=== PATIENT | female | born 2005 | race Caucasian/White ===

== ENCOUNTER 2025-03-06 05:31 | Observation (INO) | payer OTHER, SELFPAY ==
[2025-03-06] VITALS (28 sets, daily range): BP systolic 108–138; BP diastolic 57–98; PULSE 65–95; RESP 14–28; TEMP 36.2–37.1; O2SAT 98–100; BMI 33.6; BMI 33.7
--- NOTE | ~2025-03-06 | CT_ITS ---
[facility] EXAMINATION: CT abdomen pelvis w con COMPARISON: None HISTORY: RLQ pain, n/v/d TECHNIQUE: Axial images were obtained through the abdomen, pelvis post administration of IV contrast. Oral contrast was also administered. Coronal reconstruction images were obtained from the axial views. CT scan performed using dose optimization techniques including the following automated exposure control; adjustment of mA and/or kV; use of iterative reconstruction technique. Automatic exposure control was used to reduce radiation dose. Permanent radiation dose record is archived to PACS. FINDINGS: CT abdomen: LUNG BASES: The lung bases are clear. The visualized portions of the heart and pericardium are unremarkable. LIVER: Unremarkable, liver contours intact, no lesions. SPLEEN: Unremarkable. KIDNEYS: Right Kidney: The right kidney demonstrates a diminished nephrogram with mild hydronephrosis and hydroureter degenerative obstructing distal right ureteral calculus 2 x 2 millimeters. Left Kidney: Unremarkable. No calculi. No hydronephrosis ADRENAL GLANDS: Unremarkable. PANCREAS: Unremarkable. GALLBLADDER/BILIARY: Unremarkable. No biliary dilatation. STOMACH AND ESOPHAGUS: Visualized stomach and esophagus within normal limits. BOWEL/MESENTERY: Appendix normal. Mesentery normal. No colitis or diverticulitis. No dilated small bowel loops. ADENOPATHY/RETROPERITONEUM: No lymphadenopathy. AORTA/VASCULATURE: Normal caliber aorta. FREE FLUID OR FREE AIR: None. CT pelvis: SOLID ORGANS/REPRODUCTIVE: Unremarkable. BLADDER: Within normal limits. OSSEOUS STRUCTURES: No acute osseous abnormality.No suspicious lesions. OVERLYING SOFT TISSUES: Unremarkable. IMPRESSION: Right-sided obstructive uropathy Reviewed, dictated and finalized at location P. TABLE PACKER
--- NOTE | ~2025-03-06 | XR_ITS ---
EXAMINATION: XR retrograde pyelo w/stent RT DATE: 03/06/2025 17:00 INDICATION: Right internal ureteral stent placement TECHNIQUE: Fluoroscopic images from a right internal ureteral stent placement are submitted for review. 10 seconds of fluoroscopy time. FINDINGS: There is a right double-J internal ureteral stent projecting in expected position, with proximal [place] loop at the level of the renal pelvis and distal loop in the pelvis within the bladder lumen. IMPRESSION: 1. Right internal ureteral stent placement. Please refer to real-time procedural findings for details. Reviewed, dictated and finalized at location O. CTOR NEW PRODUCT IMPRESSION: 1. Right internal ureteral stent placement. Please refer to real-time procedu ral findings for details.
--- NOTE | 2025-03-06 07:37 | ED_ITS ---
HPI - Abdominal Pain General Chief Complaint: Abdominal Pain Stated Complaint: abd pain Time Seen by Provider: 03/06/25 07:02 History of Present Illness HPI narrative: For last 2 days, patient has had some abdominal pain, with nausea vomiting, however last night it got worse and at 4 this morning she was woken up with severe pain to her right lower quadrant Related Data Allergies Allergy/AdvReac Type Severity Reaction Status Date / Time No Known Allergies Allergy Verified 03/06/25 05:41 Review of Systems 2 Review of Systems: All systems reviewed & are unremarkable except as noted in HPI and below Exam 2 Narrative: EXAMINATION OF ORGAN SYSTEMS/BODY AREAS: Constitutional: Vital signs per nursing GENERAL: Curled up in pain HEAD: Normal with no signs of head trauma. EYES: EOMI, conjunctiva normal ENT: Hearing grossly intact LUNGS: Nonlabored breathing. HEART: [Regular rate and rhythm] ABD: [Soft], [nontender to palpation] EXT: Normal range of motion SKIN: [No rashes or lesions.] NEURO: [Alert and oriented x 3. No gross focal sensory or strength deficits.] PSYCH: Normal affect Course Vital Signs Vital signs: Vital Signs Temperature 98.2 F 03/06/25 05:39 Pulse Rate 95 03/06/25 05:39 Respiratory Rate 22 H 03/06/25 05:39 Blood Pressure 136/98 H 03/06/25 05:39 Pulse Oximetry 98 03/06/25 05:39 Temperature 98.2 F 03/06/25 05:39 Pulse Rate 74 03/06/25 10:30 Respiratory Rate 20 03/06/25 10:30 Blood Pressure 136/95 H 03/06/25 10:30 Pulse Oximetry 100 03/06/25 10:30 MDM - Abdominal Pain MDM Narrative Medical decision making narrative: ED COURSE AND MEDICAL DECISION MAKINF presenting to the emergency department for acute right lower quadrant pain, symptoms are concerning for likely renal colic versus pyelonephritis or appendicitis. Urinalysis is ordered. [Morphine 4mg, Zofran 4mg] are ordered. CT scan of the abdomen/pelvis is ordered. Labs are remarkable for: possible UTI, so I started ceftriaxone. CT scan of the abdomen/pelvis is reviewed by myself and interpreted by radiology: normal appendix, 2mm distal obstructing stone on R. On reevaluation, the patient still having significant pain despite the second dose of morphine; toradol 15mg given and on re-eval she feels much better and is now resting comfortably. D/w Dr Cleveland who is at bedside to see patient, plans for OR today if patient doesn't pass stone today. Updated pt and family on plan. Lab Data 03/06/25 07:46 03/06/25 09:04 Labs: Lab Results 03/06/25 03/06/25 03/06/25 Range/Units 07:46 07:50 09:04 WBC 8.7 (4.5-10.0) K/mm3 RBC 4.72 (4.2-5.4) M/mm3 Hgb 13.5 (12.0-15.0) g/dL Hct 39.8 (37.0-47.0) % MCV 84.3 (80-100) fl MCH 28.6 (26-34) pg MCHC 33.9 (32-36) g/dl RDW 11.8 (11.5-14.5) % Plt Count 288 (150-375) k/mm3 MPV 9.9 (7.4-10.4) fl Immature Gran % (Auto) 0.6 H (0-0.5) % Neut % (Auto) 75.1 H (45.5-73.1) % Lymph % (Auto) 17.8 L (18.3-44.2) % [place] % (Auto) 4.1 (2.6-8.5) % Eos % (Auto) 1.6 (0-4.4) % Baso % (Auto) 0.8 (0.2-1.2) % Lymph # (Auto) 1.55 (0.9-3.2) K/mm3 [place] # (Auto) 0.4 (0.1-0.6) K/mm3 Eos # (Auto) 0.1 (0-0.3) K/mm3 Baso # (Auto) 0.1 (0.0-0.1) K/mm3 Abs Immat Gran (auto) 0.05 H (0.00-0.031) K/mm3 Absolute Neuts (auto) 6.5 (1.3-6.7) K/mm3 Absolute Nucleated RBC 0.000 (0.0-0.012) K/mm3 Nucleated RBC % 0.0 (0.0-0.2) % Sodium 139 (134-143) mmol/L Potassium 4.7 (3.4-5.0) mmol/L Chloride 110 H (98-107) mmol/L Carbon Dioxide 16 L (22-30) mmol/L Anion Gap 13 H (4-12) mmol/L BUN 10 (8-21) mg/dL Creatinine 1.04 H (0.7-1.0) mg/dL Estim Creat Clear Calc 92 ml/min Estimated GFR > 60 (59 - ) Glucose 119 H (65-110) mg/dL Calcium 9.9 (8.9-10.7) mg/dL Total Bilirubin 0.4 (0.2-1.3) mg/dL AST 30 (14-36) U/L ALT 35 (6-35) U/L Alkaline Phosphatase 73 (45-116) U/L Total Protein 7.4 (6.3-8.6) g/dL Albumin 4.7 (3.7-5.6) g/dL Lipase 73 (23-300) U/L Urine Color (Yellow) Urine Appearance (Clear) Urine pH (5.0-9.0) Ur Specific [place] (1.001-1.035) Urine Protein (Negative) mg/dL Urine Glucose (UA) (Negative) mg/dL Urine Ketones (Negative) mg/dL Ur Blood (Man) (Negative) Urine Nitrate (Negative) Urine Bilirubin (Negative) Urine Urobilinogen (<2.0) mg/dL Add Ur Microanalysis Leukocyte Esterase Rfl (Negative) ANTHONY/UL Urine RBC (0-2) /hpf Urine WBC (0-3) /hpf Ur Squamous Epith Cells (Few) /hpf Urine Bacteria /hpf Urine Casts POC Urine HCG, Qual Negative (Negative) 03/06/25 Range/Units 09:20 WBC (4.5-10.0) K/mm3 RBC (4.2-5.4) M/mm3 Hgb (12.0-15.0) g/dL Hct (37.0-47.0) % MCV (80-100) fl MCH (26-34) pg MCHC (32-36) g/dl RDW (11.5-14.5) % Plt Count (150-375) k/mm3 MPV (7.4-10.4) fl Immature Gran % (Auto) (0-0.5) % Neut % (Auto) (45.5-73.1) % Lymph % (Auto) (18.3-44.2) % [place] % (Auto) (2.6-8.5) % Eos % (Auto) (0-4.4) % Baso % (Auto) (0.2-1.2) % Lymph # (Auto) (0.9-3.2) K/mm3 [place] # (Auto) (0.1-0.6) K/mm3 Eos # (Auto) (0-0.3) K/mm3 Baso # (Auto) (0.0-0.1) K/mm3 Abs Immat Gran (auto) (0.00-0.031) K/mm3 Absolute Neuts (auto) (1.3-6.7) K/mm3 Absolute Nucleated RBC (0.0-0.012) K/mm3 Nucleated RBC % (0.0-0.2) % Sodium (134-143) mmol/L Potassium (3.4-5.0) mmol/L Chloride (98-107) mmol/L Carbon Dioxide (22-30) mmol/L Anion Gap (4-12) mmol/L BUN (8-21) mg/dL Creatinine (0.7-1.0) mg/dL Estim Creat Clear Calc ml/min Estimated GFR (59 - ) Glucose (65-110) mg/dL Calcium (8.9-10.7) mg/dL Total Bilirubin (0.2-1.3) mg/dL AST (14-36) U/L ALT (6-35) U/L Alkaline Phosphatase (45-116) U/L Total Protein (6.3-8.6) g/dL Albumin (3.7-5.6) g/dL Lipase (23-300) U/L Urine Color Yellow (Yellow) Urine Appearance Cloudy H (Clear) Urine pH 6.0 (5.0-9.0) Ur Specific [place] 1.027 (1.001-1.035) Urine Protein 1+ H (Negative) mg/dL Urine Glucose (UA) Negative (Negative) mg/dL Urine Ketones Trace H (Negative) mg/dL Ur Blood (Man) Non-hemolyzed trace H (Negative) Urine Nitrate Negative (Negative) Urine Bilirubin Negative (Negative) Urine Urobilinogen 1.0 (<2.0) mg/dL Add Ur Microanalysis Reviewed Leukocyte Esterase Rfl 2+ H (Negative) ANTHONY/UL Urine RBC 6-10 H (0-2) /hpf Urine WBC >100 H (0-3) /hpf Ur Squamous Epith Cells Few (Few) /hpf Urine Bacteria None seen /hpf Urine Casts 6-10 POC Urine HCG, Qual (Negative) Imaging Data Radiologist's impression: ITS Impressions Abdomen/Pelvis CT 03/06/25 09:46 IMPRESSION: Right-sided obstructive uropathy Discharge Plan Discharge Clinical Impression: Right ureteral stone, Suspected UTI Patient Disposition: Still a Patient Condition: Stable
[2025-03-06] MEDS: ONDANSETRON INJ 4 MG/2 ML VIAL IV PUSH (07:41)
[2025-03-06] MEDS: MORPHINE SULFATE (*CRX) 4 MG/ML INJ IV PUSH ×2 (07:42→09:49)
[2025-03-06] MEDS: LACTATED RINGERS 1,000 ML 999 ML IV CONT (07:43)
[2025-03-06 07:52] LABS: BEDSIDEPREGUCG Negative (Negative)
[2025-03-06 08:00] LABS: Hematocrit 39.8 % (37.0-47.0); Hemoglobin 13.5 g/dL (12.0-15.0); Immature Granulocyte Percent A 0.6 % (0-0.5); Lymphocytes Absolute Auto 1.55 K/mm3 (0.9-3.2); Mean Corpuscular HGB Conc 33.9 g/dl (32-36); Mean Corpuscular Hemoglobin 28.6 pg (26-34); Mean Corpuscular Volume 84.3 fl (80-100); Nucleated Red Blood Cells Absolute Auto 0.000 K/mm3 (0.0-0.012); Nucleated Red Blood Cells Perc 0.0 % (0.0-0.2); Platelet Count Result 288 k/mm3 (150-375); Red Blood Count 4.72 M/mm3 (4.2-5.4); White Blood Count 8.7 K/mm3 (4.5-10.0)
--- OUTSIDE RECORDS SUMMARY | 2025-03-06 08:09 | XMS_ITS | Encounter Summary ---
[facility] Organization [facility] Address [address] [place] [address] Care Team Providers Care Edge Cutting Machine Operator Name Role Phone Torsten King MD Primary Care Provider [phone] Luke Latif MD Primary Care Provider Unav ailable Patient, None Per Primary Care Provider Premaa Trung Field MD Primary Care Provider Claudia Castro [facility] Primary Care Provider Claudia Castro [facility] Primary Care Provider Claudia Castro [facility] Primary Care Provider Encounter Details Date Type Department Care Team (Late st Contact Info) Description 2005 Historical Office Visit [facility] Pediatrics [facility] [address] [facility] [address] [place] [address] Uche Hobbs MD [address] [facility] [address] [place] [address] Social History Tobacco Use Types Packs/Day Years Used Date Smoking Tobacco: Never Assessed Comments Unknown Sex and Gender Information Value Date Recorded Sex Assigned at Not on file Legal Sex Female 4:54 PM FLATCAR WHACKER Gender Identity Female 03/21/2023 4:10 PM FLATCAR WHACKER Sexual Orientation Not on file documented as of this encounter Last Filed Vital Signs Vital Sign Reading Time Taken Comments Blood Pressure - - Pulse 138 2005 11:29 AM FLATCAR WHACKER Temperature 36.4 C (97.6 F) 2005 11:29 AM FLATCAR WHACKER Respiratory Rate 24 2005 11:29 AM FLATCAR WHACKER Oxygen Saturation - - Inhaled Oxygen Concentration - - Weight 3.742 kg (8 lb 4 oz) 2005 11:29 AM FLATCAR WHACKER Height 52.3 cm (1' 8.6) 2005 11:29 AM FLATCAR WHACKER Hasaix-gca-Opufux Percentile 36.26% 2005 1 1:29 AM FLATCAR WHACKER Growth Chart: WHO (Girls, 0- 2 years) Head Circumference 36.2 cm 2005 11:29 AM CS T Head Circumference Percentile 75.95% 2005 11:29 AM FLATCAR WHACKER Growth Chart: WHO (Girls, 0- 2 years) Body Mass Index 13.67 2005 11:29 AM FLATCAR WHACKER Body Mass Index Percentile 39.33% 2005 11: 29 AM FLATCAR WHACKER Growth Chart: WHO (Girls, 0- 2 years) documented in this encounter Plan of Treatment Not on file documented as of this encounter Visit Diagnoses Not on filedocumented in this encounter Care Teams Edge Cutting Machine Operator Relationship Specialty Start Date End Date Torsten King MD PCP - General Family Medicine 03/25/14 11/23/15 Luke Latif MD PCP - General Family Medicine 11/24/15 05/06/17 Patient, None Per PCP - General 08/05/17 08/15/17 Trung Carlson MD PCP - General Pediatrics 08/16/17 03/06/18 Claudia Castro FNP PCP - General Family Medicine 03/07/18 11/14/18 Claudia Castro FNP PCP - General Family Medicine 11/21/18 02/14/19 Claudia Castro, MALENA PCP - General Family Medicine 05/23/19 documented as of this encounter
--- OUTSIDE RECORDS SUMMARY | 2025-03-06 08:09 | XMS_ITS | Encounter Summary ---
Author Organization [facility] Address [address] [place] [address] Care Team Providers Care Membership Assistant Name Role Phone Torsten King MD Primary Care Provider [phone] Luke Latif MD Primary Care Provider Unav ailable Patient, None Per Primary Care Provider Premaa Trung Field MD Primary Care Provider Claudia Castro [facility] Primary Care Provider [phone] Claudia Castro [facility] Primary Care Provider [phone] Claudia Castro [facility] Primary Care Provider [phone] Encounter Details Date Type Department Care Team (Late st Contact Info) Description 01/27/2008 Historical Office Visit [facility] Family Medicine [address] [address] Provider, Not In System Social History Tobacco Use Types Packs/Day Years Used Date Smoking Tobacco: Never Assessed Comments Unknown Sex and Gender Information Value Date Recorded Sex Assigned at Not on file Legal Sex Female 4:54 PM CULINARY INTERNSHIP Gender Identity Female 03/21/2023 4:10 PM CULINARY INTERNSHIP Sexual Orientation Not on file documented as of this encounter Last Filed Vital Signs Vital Sign Reading Time Taken Comments Blood Pressure - - Pulse 92 01/27/2008 3:42 PM CDT Temperature 37 C (98.6 F) 01/27/2008 3:42 PM CDT Respiratory Rate - - Oxygen Saturation - - Inhaled Oxygen Concentration - - Weight 14.1 kg (31 lb) 01/27/2008 3:42 PM CDT Height - - Body Mass Index - - documented in this encounter Plan of Treatment Not on file documented as of this encounter Visit Diagnoses Not on filedocumented in this encounter Care Teams Membership Assistant Relationship Specialty Start Date End Date Torsten [...] - General Family Medicine 11/21/18 02/14/19 Claudia Castro FNP PCP - General Family Medicine 05/23/19 documented as of this encounter
--- OUTSIDE RECORDS SUMMARY | 2025-03-06 08:09 | XMS_ITS | Encounter Summary ---
Author Organization [facility] Address [address] [place] [address] Care Team Providers Care Meter Shop Supervisor Name Role Phone Torsten King MD Primary Care Provider [phone] Luke Latif MD Primary Care Provider Unav ailable Patient, None Per Primary Care Provider Premaa Trung Field MD Primary Care Provider Claudia Castro [facility] Primary Care Provider [phone] [facility] Primary Care Provider [phone] [facility] Primary Care Provider [phone] Encounter Details Date Type Department Care Team (Late st Contact Info) Description 2005 Historical Office Visit [facility] Pediatrics [facility] [place] [address] [facility] [address] [place] [address] Uche Hobbs MD [address] [facility] [address] [place] [address] Social History Tobacco Use Types Packs/Day Years Used Date Smoking Tobacco: Never Assessed Comments Unknown Sex and Gender Information Value Date Recorded Sex Assigned at Not on file Legal Sex Female 4:54 PM LASER OPERATOR Gender Identity Female 03/21/2023 4:10 PM LASER OPERATOR Sexual Orientation Not on file documented as of this encounter Last Filed Vital Signs Vital Sign Reading Time Taken Comments Blood Pressure - - Pulse 140 2005 2:41 PM LASER OPERATOR Temperature 36.3 C (97.3 F) 2005 2:41 PM LASER OPERATOR Respiratory Rate 38 2005 2:41 PM LASER OPERATOR Oxygen Saturation - - Inhaled Oxygen Concentration - - Weight 3.402 kg (7 lb 8 oz) 2005 2:[address] Height 48.3 cm (1' 7) 2005 2:41 PM LASER OPERATOR Ukdzqi-qoj-Aojdmb Percentile 89.59% 2005 2 :41 PM LASER OPERATOR Growth Chart: WHO (Girls, 0- 2 years) Body Mass Index 14.61 2005 2:41 PM LASER OPERATOR Body Mass Index Percentile 81.13% 2005 2:4 1 PM LASER OPERATOR Growth Chart: WHO (Girls, 0- 2 years) documented in this encounter Plan of Treatment Not on file documented as of this encounter Visit Diagnoses Not on filedocumented in this encounter Care Teams Meter Shop Supervisor Relationship Specialty Start Date End Date Torsten [...]
--- OUTSIDE RECORDS SUMMARY | 2025-03-06 08:09 | XMS_ITS | Encounter Summary ---
Author Organization [facility] Address [address] [place] [address] Care Team Providers Care Principal Associate Name Role Phone Torsten King MD Primary Care Provider [phone] Luke Latif MD Primary Care Provider Unav ailable Patient, None Per Primary Care Provider Unavaila Trung Field MD Primary Care Provider Claudia Castro [facility] Primary Care Provider Claudia Castro [facility] Primary Care Provider Claudia Castro [facility] Primary Care Provider Encounter Details Date Type Department Care Team (Late st Contact Info) Description 2005 Historical Office Visit [address] [place] [address] Lena Crawford NP Social History Tobacco Use Types Packs/Day Years Used Date Smoking Tobacco: Never Assessed Comments Unknown Sex and Gender Information Value Date Recorded Sex Assigned at Not on file Legal Sex Female 4:54 PM INFORMATION SECURITY Gender Identity Female 03/21/2023 4:10 PM INFORMATION SECURITY Sexual Orientation Not on file documented as of this encounter Last Filed Vital Signs Vital Sign Reading Time Taken Comments Blood Pressure - - Pulse 144 2005 11:02 AM CDT Temperature 37 C (98.6 F) 2005 11:02 AM CDT Respiratory Rate 20 2005 11:02 AM CDT Oxygen Saturation - - Inhaled Oxygen Concentration - - Weight 7.314 kg (16 lb 2 oz) 2005 11:02 AM CDT Height 63.5 cm (2' 1) 2005 11:02 AM CDT Sqsmzp-qxn-Qkvckv Percentile 81.40% 2005 1 1:02 AM CDT Growth Chart: WHO (Girls, 0- 2 years) Body Mass Index 18.14 2005 11:02 AM CDT Body Mass Index Percentile 79.48% 2005 11: 02 AM CDT Growth Chart: WHO (Girls, 0- 2 years) documented in this encounter Plan of Treatment Not on file documented as of this encounter Visit Diagnoses Not on filedocumented in this encounter Care Teams Principal Associate Relationship Specialty Start Date End Date Torsten [...]
--- OUTSIDE RECORDS SUMMARY | 2025-03-06 08:09 | XMS_ITS | Encounter Summary ---
Author Organization [facility] Address [address] [place] [address] Care Team Providers Care Funeral Home Attendant Name Role Phone Torsten King MD Primary Care Provider [phone] Luke Latif MD Primary Care Provider Unav ailable Patient, None Per Primary Care Provider Premaa Trung Field MD Primary Care Provider Claudia Castro [facility] Primary Care Provider [phone] [facility] Primary Care Provider Claudia Castro [facility] Primary Care Provider Encounter Details Date Type Department Care Team (Late st Contact Info) Description 06/03/2006 Historical Office Visit [facility] Family Medicine [address] [place] [id number] Pankaj Baez, DIRECTOR OF QUALITY IMPROVEMENT Social History Tobacco Use Types Packs/Day Years Used Date Smoking Tobacco: Never Assessed Comments Unknown Sex and Gender Information Value Date Recorded Sex Assigned at Not on file Legal Sex Female 4:54 PM LAMINATION SPINNER Gender Identity Female 03/21/2023 4:10 PM LAMINATION SPINNER Sexual Orientation Not on file documented as of this encounter Last Filed Vital Signs Vital Sign Reading Time Taken Comments Blood Pressure - - Pulse - - Temperature 37.4 C (99.3 F) 06/03/2006 11:22 AM LAMINATION SPINNER Respiratory Rate - - Oxygen Saturation - - Inhaled Oxygen Concentration - - Weight 9.752 kg (21 lb 8 oz) 06/03/2006 11:22 AM LAMINATION SPINNER Height - - Body Mass Index - - documented in this encounter Plan of Treatment Not on file documented as of this encounter Visit Diagnoses Not on filedocumented in this encounter Care Teams Funeral Home Attendant Relationship Specialty Start Date End Date Torsten [...]
--- OUTSIDE RECORDS SUMMARY | 2025-03-06 08:09 | XMS_ITS | Encounter Summary ---
Author Organization [facility] Address [address] [place] [address] Care Team Providers Care Director Telecommunications Name Role Phone Torsten King MD Primary Care Provider [phone] Luke Latif MD Primary Care Provider Unav ailable Patient, None Per Primary Care Provider Premaa Trung Field MD Primary Care Provider Claudia Castro [facility] Primary Care Provider Claudia Castro [facility] Primary Care Provider Claudia Castro [facility] Primary Care Provider [phone] Encounter Details Date Type Department Care Team (Late st Contact Info) Description 2005 Historical Office Visit [facility]s [facility] [address] [facility] [address] [place] [address] Uche Hobbs MD [address] [facility] [address] [place] [address] Social History Tobacco Use Types Packs/Day Years Used Date Smoking Tobacco: Never Assessed Comments Unknown Sex and Gender Information Value Date Recorded Sex Assigned at Not on file Legal Sex Female 4:54 PM BIODIESEL DIVISION MANAGER Gender Identity Female 03/21/2023 4:10 PM BIODIESEL DIVISION MANAGER Sexual Orientation Not on file documented as of this encounter Last Filed Vital Signs Vital Sign Reading Time Taken Comments Blood Pressure - - Pulse 128 2005 1:34 PM BIODIESEL DIVISION MANAGER Temperature 36 C (96.8 F) 2005 1:34 PM BIODIESEL DIVISION MANAGER Respiratory Rate 36 2005 1:34 PM BIODIESEL DIVISION MANAGER Oxygen Saturation - - Inhaled Oxygen Concentration - - Weight 4.224 kg (9 lb 5 oz) 2005 1:[address] Height 53.3 cm (1' 9) 2005 1:34 PM BIODIESEL DIVISION MANAGER Mbxgme-cwq-Nybxma Percentile 61.89% 2005 1 :34 PM BIODIESEL DIVISION MANAGER Growth Chart: WHO (Girls, 0- 2 years) Body Mass Index 14.85 2005 1:34 PM BIODIESEL DIVISION MANAGER Body Mass Index Percentile 51.78% 2005 1:3 4 PM BIODIESEL DIVISION MANAGER Growth Chart: WHO (Girls, 0- 2 years) documented in this encounter Plan of Treatment Not on file documented as of this encounter Visit Diagnoses Not on filedocumented in this encounter Care Teams Director Telecommunications Relationship Specialty Start Date End Date Torsten [...]
--- OUTSIDE RECORDS SUMMARY | 2025-03-06 08:09 | XMS_ITS | Encounter Summary ---
Author Organization [facility] Address [address] [place] [address] Care Team Providers Care Housecleaner Floor Name Role Phone Torsten King MD Primary Care Provider [phone] Luke Latif MD Primary Care Provider Unav ailable Patient, None Per Primary Care Provider Unavaila Trung Field MD Primary Care Provider Claudia Castro [facility] Primary Care Provider [phone] Claudia Castro [facility] Primary Care Provider Claudia Castro [facility] Primary Care Provider Encounter Details Date Type Department Care Team (Late st Contact Info) Description 02/24/2006 Historical Office Visit [facility] Family Medicine [address] [address] Provider, Not In System Social History Tobacco Use Types Packs/Day Years Used Date Smoking Tobacco: Never Assessed Comments Unknown Sex and Gender Information Value Date Recorded Sex Assigned at Not on file Legal Sex Female 4:54 PM COUTURE DRESSMAKER Gender Identity Female 03/21/2023 4:10 PM COUTURE DRESSMAKER Sexual Orientation Not on file documented as of this encounter Last Filed Vital Signs Vital Sign Reading Time Taken Comments Blood Pressure - - Pulse 120 02/24/2006 6:00 PM CDT Temperature 35.8 C (96.4 F) 02/24/2006 6:00 PM CDT Respiratory Rate - - Oxygen Saturation - - Inhaled Oxygen Concentration - - Weight 3.912 kg (8 lb 10 oz) 02/24/2006 6:00 PM CDT Height - - Body Mass Index - - documented in this encounter Plan of Treatment Not on file documented as of this encounter Visit Diagnoses Not on filedocumented in this encounter Care Teams Housecleaner Floor Relationship Specialty Start Date End Date Torsten [...]
--- OUTSIDE RECORDS SUMMARY | 2025-03-06 08:09 | XMS_ITS | Encounter Summary ---
Author Organization [facility] Address [address] [place] [address] Care Team Providers Care Asp Net Mvc Developer Name Role Phone Torsten King MD Primary Care Provider [phone] Luke Latif MD Primary Care Provider Unav ailable Patient, None Per Primary Care Provider Unavaila Trung Field MD Primary Care Provider [phone] Claudia Castro [facility] Primary Care Provider Claudia Csatro [facility] Primary Care Provider Claudia Castro [facility] Primary Care Provider Encounter Details Date Type Department Care Team (Late st Contact Info) Description 2005 Historical Office Visit [address] [place] [address] Lena Crawford NP Social History Tobacco Use Types Packs/Day Years Used Date Smoking Tobacco: Never Assessed Comments Unknown Sex and Gender Information Value Date Recorded Sex Assigned at Not on file Legal Sex Female 4:54 PM LOCKSTITCH FRONT MAKER Gender Identity Female 03/21/2023 4:10 PM LOCKSTITCH FRONT MAKER Sexual Orientation Not on file documented as of this encounter Last Filed Vital Signs Vital Sign Reading Time Taken Comments Blood Pressure - - Pulse 156 2005 3:53 PM LOCKSTITCH FRONT MAKER Temperature 35.7 C (96.3 F) 2005 3:53 PM LOCKSTITCH FRONT MAKER Respiratory Rate 44 2005 3:53 PM LOCKSTITCH FRONT MAKER Oxygen Saturation - - Inhaled Oxygen Concentration - - Weight 4.139 kg (9 lb 2 oz) 2005 3:[address] Height 52.7 cm (1' 8.75) 2005 3:53 PM LOCKSTITCH FRONT MAKER Dklsnf-rps-Mpnpci Percentile 68.56% 2005 3 :53 PM LOCKSTITCH FRONT MAKER Growth Chart: WHO (Girls, 0- 2 years) Head Circumference 37.5 cm 2005 3:53 PM LOCKSTITCH FRONT MAKER Head Circumference Percentile 83.98% 2005 3:53 PM LOCKSTITCH FRONT MAKER Growth Chart: WHO (Girls, 0- 2 years) Body Mass Index 14.9 2005 3:53 PM LOCKSTITCH FRONT MAKER Body Mass Index Percentile 62.14% 2005 3:5 3 PM LOCKSTITCH FRONT MAKER Growth Chart: WHO (Girls, 0- 2 years) documented in this encounter Plan of Treatment Not on file documented as of this encounter Visit Diagnoses Not on filedocumented in this encounter Care Teams Asp Net Mvc Developer Relationship Specialty Start Date End Date Torsten [...]
--- OUTSIDE RECORDS SUMMARY | 2025-03-06 08:09 | XMS_ITS | Encounter Summary ---
Author Organization [facility] Address [address] [place] [address] Care Team Providers Care Cleaning Custodian Name Role Phone Torsten King MD Primary Care Provider [phone] Luke Latif MD Primary Care Provider Unav ailable Patient, None Per Primary Care Provider Premaa Trung Field MD Primary Care Provider [phone] Claudia Castro [facility] Primary Care Provider [phone] Claudia Castro [facility] Primary Care Provider [phone] Claudia Castro [facility] Primary Care Provider [phone] Encounter Details Date Type Department Care Team (Late st Contact Info) Description 07/29/2007 Historical Office Visit [facility] [address] [place] [phone] Luis Landaverde MD Social History Tobacco Use Types Packs/Day Years Used Date Smoking Tobacco: Never Assessed Comments Unknown Sex and Gender Information Value Date Recorded Sex Assigned at Not on file Legal Sex Female 4:54 PM FIRST RESPONDER Gender Identity Female 03/21/2023 4:10 PM FIRST RESPONDER Sexual Orientation Not on file documented as of this encounter Last Filed Vital Signs Vital Sign Reading Time Taken Comments Blood Pressure - - Pulse 116 07/29/2007 11:05 AM CDT Temperature 35.6 C (96.1 F) 07/29/2007 11:05 AM CDT Respiratory Rate - - Oxygen Saturation - - Inhaled Oxygen Concentration - - Weight 13.2 kg (29 lb) 07/29/2007 11:05 AM CDT Height 87.6 cm (2' 10.5) 07/29/2007 11:05 AM CD T Ggdbll-lmp-Renhsy Percentile 75.61% 07/29/2007 1 1:05 AM CDT Growth Chart: [facility] (Girls, 2- 20 Years) Body Mass Index 17.13 07/29/2007 11:05 AM CDT Body Mass Index Percentile 71.07% 07/29/2007 11: 05 AM CDT Growth Chart: CDC (Girls, 2- 20 Years) documented in this encounter Plan of Treatment Not on file documented as of this encounter Visit Diagnoses Not on filedocumented in this encounter Care Teams Cleaning Custodian Relationship Specialty Start Date End Date Torsten [...]
--- OUTSIDE RECORDS SUMMARY | 2025-03-06 08:09 | XMS_ITS | Clinical Summary ---
Author Organization [facility] Address [address] [place] [address] Care Team Providers Care Recruiting Specialist Name Role Phone GloriaClaudia Yuliya [facility] Primary Care Provider Source Comments This disclosure is being made pursuant to the [employer] program and maynot contain all information available regarding this patient.[facility] Allergies No known active allergies Medications loratadine (CLARITIN) 10 MG tablet Take 10 mg by mouth daily as needed. Active acetaminophen (TYLENOL) 160 MG/5ML suspension Take by mouth every 6 (six) hours as needed for Fever. Active norgestrel-ethinyl estradiol 0.3-30 MG-MCG per tabletIndications: Oral contraceptive pill surveillance Take 1 (one) tablet by mouth daily. 84 tablet 3 3 Active ampicillin (PRINCIPEN) 500 MG capsule Take 500 mg by mouth 2 (two) times daily. 3 Active clindamycin (CLINDAGEL) 1 % gel Apply topically 2 (two) times daily. 3 Active ibuprofen 400 MG tablet Take 400 mg by mouth every 6 (six) hours as needed. 4 Active Active Problems Problem Noted Date Diagnosed Date Oral contraceptive use 08/27/2022 Syncope 05/12/2022 History of dizziness 05/12/2022 Dizziness 02/27/2022 BMI (body mass index), pedia tric, 85% to less than 95% for age 0408/24/2021 Tonsil stone 11/13/2020 Fatigue 08/22/2020 Oral contraception initiation 02/12/2020 Acne vulgaris 07/25/2019 Encounter for well child check without abnormal findings 07/24/2019 Allergic rhinitis 10/12/2017 Resolved Problems Problem Noted Date Diagnosed Date Resolved Date Tonsillitis 11/13/2020 02/27/2022 Acute non-recurrent pansinusitis 08/22/2020 02/27/2022 Acute pharyngitis 08/22/2020 02/27/2022 Productive cough 08/22/2020 02/27/2022 Screening for HPV (human papillomavirus) 07/29/2020 02/27/2022 Other acute recurrent sinusitis 06/03/2020 07/29/2020 Nasal sinus congestion 06/03/202007/29 Acute suppurative otitis med ia of left ear without spontaneous rupture of tympanic membrane 08/05/2017 07/25/2019 Closed Colles' fracture d istal right radius fracture 2014 04/09/2014 020 Dog bite 11/28/2011 07/25/2019 Overview (11/24/2015): Overview: 2011 right facial laceration ZEENAT BURROUGHS MD Immunizations Immunization Administration Dates Next Due COVID-19 (PFIZER-purple cap) MRNA ages 12+ 04/13/2021,03/23/2021 DTaP (Infanrix) DTaP 10/15/2006,01/09/20 06,2005,08/13 DTaP / IPV 12/11/2010 Hepatitis B-Haemophilus infl uenzae type b (Comvax) HepB-Hib 06/22/2006,2005,2005 Human Papillomavirus (G[place]as il 9) 9vHPV 07/29/2020,11/05/2016 Influenza (FLULAVAL) IIV4, p refilled syringe 03/22/2023,02/06/2020 Influenza Split 03/23/2006 LIVE Zttkhqr-Tvbxl-Pyoaghb ( M-M-R II) MMR 12/11/2010,10/15/2006 LIVE Rotavirus (RotaTeq) RV5 2005 LIVE Varicella (Varivax) ZEFERINO 12/11/2010,02/12/20 09 Meningococcal Conjugate (Men actra) MCV4 MenACWY-D 11/05/2016 Meningococcal Conjugate (Men veo) MCV4 MenACWY-CRM 09/25/2022 PPD Test 03/22/2023 Pneumococcal Polysaccharide- 23 (Pneumovax 23) PPSV23 06/22/2006,01/08/2006,2005,08/13 Polio (Ipol) IPV 01/08/2006,2005, 6 Rotavirus (RotaShield) RV4 2005 Tdap 11/05/2016 Family History Medical History Relation Name Comments High cholesterol Maternal Grandmother Hypertension Maternal Grandmother Uterine cancer Maternal Grandmother No Known Problems Mother High cholesterol Paternal Grandmother Hypertension Paternal Grandmother SIDS Sister Relation Name Status Comments Father Alive Maternal Grandmother Mother Alive Paternal Grandmother Sister Social History Tobacco Use Types Packs/Day Years Used Date Smoking Tobacco: Never Smokeless Tobacco: Never Tobacco Cessation:Counseling Given: Not Answered Alcohol Use Standard Drinks/Week Comments No 0 (1 standard drink = 0.6 oz pur e alcohol) PHQ-2 Answer Date Recorded PHQ-2 Total Score Teen 0 3 Comments No Sex and Gender Information Value Date Recorded Sex Assigned at Not on file Legal Sex Female 4:54 PM BINGO MANAGER Gender Identity Female 03/21/2023 4:10 PM BINGO MANAGER Sexual Orientation Not on file Last Filed Vital Signs Vital Sign Reading Time Taken Comments Blood Pressure 117/79 06/04/2022 3:15 PM BINGO MANAGER Pulse 67 06/04/2022 3:15 PM BINGO MANAGER Temperature 36.7 C (98 F) 06/04/2022 3:15 PM BINGO MANAGER Respiratory Rate 18 06/04/2022 3:15 PM BINGO MANAGER Oxygen Saturation 99% 06/04/2022 3:15 PM BINGO MANAGER Inhaled Oxygen Concentration - - Weight 78 kg (172 lb) 06/04/2022 3:15 PM BINGO MANAGER Height 170.2 cm (5' 7) 06/04/2022 3:15 PM BINGO MANAGER Head Circumference 47 cm 10/15/2006 4:24 PM CDT Head Circumference Percentile 79.68% 10/15/2006 4:24 PM CDT Growth Chart: WHO (Girls, 0- 2 years) Body Mass Index 26.94 06/04/2022 3:15 PM BINGO MANAGER Body Mass Index Percentile 90.65% 06/04/2022 3:1 5 PM BINGO MANAGER Growth Chart: [facility] (Girls, 2- 20 Years) Plan of Treatment Health Maintenance Due Date Last Done Comments Lab-Hepatitis C Screening 2005 Chlamydia Screening 2021 Meningococcal B Vaccine (1 of 2 - Standard) 2021 Annual Wellness Visit 2023 COVID-19 Vaccine (3 - season) 2025 04/13/2021, 03/23/2021 Influenza Vaccine (#1) 2025 , 02/06/2020, 03/23/2006 Tetanus/Pertussis Vaccine Teen/Adult (7 - Td or Tdap) 11/05/2026 11/05/2016, 12/11/2010, 10/15/2006, Additional history exists Zoster (Shingles) Vaccine 50+ (1 of 2) 2055 RSV Adult (1 - 1-dose 75+ series) 2080 HIB Vaccine Completed 06/22/2006, 10/31, 2005 Hepatitis B Vaccine Completed 06/22/2006, 2005, 2005 Pneumococcal Vaccines 0-49 yo Aged Out 06/22/2006, 01/08/2006, 2005, Additional history exists No longer eligible based on patient's age to complete this topic IPV Vaccine Completed 12/11/2010, 12/2005, 2005, Additional history exists HPV Vaccine (9-26yo & Shared Decision 27-45yo) Completed 07/29/2020, 11/05/2016 Meningococcal Conjugate Vaccine Completed 09/25/2022, 11/05/2016 RSV < 20 Months Aged Out No longer el igible based on patient's age to complete this topic Goals Goal Patient Goal Type Associated Problems Recent Progress Patient-Stated? Author DIET - EAT THREE BALANCED MEALS DAILY CONSISTING OF FOODS FROM ALL FOOD GROUPS Self-Managem ent No Trung Carlson MD Note: Assessment of Goals: Patient and Caregiver understands and recognizes importance to complete goal. Barriers or concerns to completing goal: none To assist in achieving goal, patient will: Try and maintain a healthy balanced diet Medical Devices Implanted Type Area Sensor Specialist Device Identifier Shelf Expiration Date Model / Serial / Lot 4 K-Wire Implanted:Qty: 1 on 04/09/2014 by Bob Ly MD at [facility] Right: Wrist MICRO AIRE [id number] / / [place] [address] [place] [address] [facility] Care Teams Recruiting Specialist Relationship Specialty Start Date End Date Claudia Castro FNP PCP - General Family Medicine 05/23/19
--- OUTSIDE RECORDS SUMMARY | 2025-03-06 08:09 | XMS_ITS | Encounter Summary ---
Author Organization [facility] Address [address] [place] [address] Care Team Providers Care Cellar Pumper Name Role Phone Torsten King MD Primary Care Provider [phone] Luke Latif MD Primary Care Provider Unav ailable Patient, None Per Primary Care Provider Premaa Trung Field MD Primary Care Provider Claudia Castro [facility] Primary Care Provider [phone] Claudia Castro [facility] Primary Care Provider [phone] Claudia Castro [facility] Primary Care Provider [phone] Encounter Details Date Type Department Care Team (Late st Contact Info) Description 03/23/[address] [facility] Family Medicine [address] [place] [address] Luis Landaverde MD Social History Tobacco Use Types Packs/Day Years Used Date Smoking Tobacco: Never Assessed Comments Unknown Sex and Gender Information Value Date Recorded Sex Assigned at Not on file Legal Sex Female 4:54 PM MILL TENDER SECOND OPERATOR Gender Identity Female 03/21/2023 4:10 PM MILL TENDER SECOND OPERATOR Sexual Orientation Not on file documented as of this encounter Last Filed Vital Signs Vital Sign Reading Time Taken Comments Blood Pressure - - Pulse 102 03/23/2006 3:30 PM MILL TENDER SECOND OPERATOR Temperature 37.1 C (98.7 F) 03/23/2006 3:30 PM MILL TENDER SECOND OPERATOR Respiratory Rate 20 03/23/2006 3:30 PM MILL TENDER SECOND OPERATOR Oxygen Saturation - - Inhaled Oxygen Concentration - - Weight 9.129 kg (20 lb 2 oz) 03/23/2006 3:30 PM MILL TENDER SECOND OPERATOR Height 75.6 cm (2' 5.75) 03/23/2006 3:30 PM MILL TENDER SECOND OPERATOR Iazalb-ywo-Utgujo Percentile 43.68% 03/23/2006 3 :30 PM MILL TENDER SECOND OPERATOR Growth Chart: WHO (Girls, 0- 2 years) Head Circumference 43.2 cm 03/23/2006 3:30 PM MILL TENDER SECOND OPERATOR Head Circumference Percentile 29.81% 03/23/2006 3:30 PM MILL TENDER SECOND OPERATOR Growth Chart: WHO (Girls, 0- 2 years) Body Mass Index 15.99 03/23/2006 3:30 PM MILL TENDER SECOND OPERATOR Body Mass Index Percentile 30.76% 03/23/2006 3:3 0 PM MILL TENDER SECOND OPERATOR Growth Chart: WHO (Girls, 0- 2 years) documented in this encounter Plan of Treatment Not on file documented as of this encounter Visit Diagnoses Not on filedocumented in this encounter Care Teams Cellar Pumper Relationship Specialty Start Date End Date Torsten [...]
--- OUTSIDE RECORDS SUMMARY | 2025-03-06 08:09 | XMS_ITS | Encounter Summary ---
Author Organization [facility] Address [address] [place] [address] Care Team Providers Care Port Traffic Manager Name Role Phone Torsten King MD Primary Care Provider [phone] Luke Latif MD Primary Care Provider Unav ailable Patient, None Per Primary Care Provider Premaa Trung Field MD Primary Care Provider Claudia Castro [facility] Primary Care Provider Claudia Castro [facility] Primary Care Provider Claudia Castro [facility] Primary Care Provider [phone] Encounter Details Date Type Department Care Team (Late st Contact Info) Description 03/03/2006 Historical Office Visit [facility] Family Medicine [address] [phone] Luis Landaverde MD Social History Tobacco Use Types Packs/Day Years Used Date Smoking Tobacco: Never Assessed Comments Unknown Sex and Gender Information Value Date Recorded Sex Assigned at Not on file Legal Sex Female 4:54 PM PRODUCT ASSURANCE ENGINEER Gender Identity Female 03/21/2023 4:10 PM PRODUCT ASSURANCE ENGINEER Sexual Orientation Not on file documented as of this encounter Last Filed Vital Signs Vital Sign Reading Time Taken Comments Blood Pressure - - Pulse - - Temperature 36.8 C (98.3 F) 03/03/2006 11:54 AM PRODUCT ASSURANCE ENGINEER Respiratory Rate - - Oxygen Saturation - - Inhaled Oxygen Concentration - - Weight 8.959 kg (19 lb 12 oz) 6 11:54 AM PRODUCT ASSURANCE ENGINEER Height 69.2 cm (2' 3.25) 03/03/2006 11 :54 AM PRODUCT ASSURANCE ENGINEER Bpqird-nfx-Mzixmn Percentile 88.95% 05/2005 11:54 AM PRODUCT ASSURANCE ENGINEER Growth Chart: WHO (Girls, 0- 2 years) Body Mass Index 18.7 03/03/2006 11:54 AM PRODUCT ASSURANCE ENGINEER Body Mass Index Percentile 88.38% 03/03 11:54 AM PRODUCT ASSURANCE ENGINEER Growth Chart: WHO (Girls, 0- 2 years) documented in this encounter Plan of Treatment Not on file documented as of this encounter Visit Diagnoses Not on filedocumented in this encounter Care Teams Port Traffic Manager Relationship Specialty Start Date End Date Tortsen King MD PCP - General Family Medicine [...]
--- OUTSIDE RECORDS SUMMARY | 2025-03-06 08:09 | XMS_ITS | Encounter Summary ---
Author Organization [facility] Address [address] [place] [address] Care Team Providers Care Manager Configuration Name Role Phone Torsten King MD Primary Care Provider [phone] Luke Latif MD Primary Care Provider Unav ailable Patient, None Per Primary Care Provider Premaa Trung Field MD Primary Care Provider Claudia Castro [facility] Primary Care Provider [phone] Claudia Castro [facility] Primary Care Provider [phone] Claudia Castro [facility] Primary Care Provider [phone] Encounter Details Date Type Department Care Team (Late st Contact Info) Description 01/08/2006 Historical Office Visit [facility] Family Medicine [address] [address] Luis Landaverde MD Social History Tobacco Use Types Packs/Day Years Used Date Smoking Tobacco: Never Assessed Comments Unknown Sex and Gender Information Value Date Recorded Sex Assigned at Not on file Legal Sex Female 4:54 PM MAIL PROCESSING MACHINE OPERATOR Gender Identity Female 03/21/2023 4:10 PM MAIL PROCESSING MACHINE OPERATOR Sexual Orientation Not on file documented as of this encounter Last Filed Vital Signs Vital Sign Reading Time Taken Comments Blood Pressure - - Pulse 130 01/08/2006 3:47 PM CDT Temperature 37.7 C (99.9 F) 01/08/2006 3:47 PM CDT Respiratory Rate - - Oxygen Saturation - - Inhaled Oxygen Concentration - - Weight 8.42 kg (18 lb 9 oz) 01/08/2006 3:47 PM C DT Height 66 cm (2' 2) 01/08/2006 3:47 PM CDT Uhbuio-ryd-Aonfew Percentile 93.50% 01/08/2006 3 :47 PM CDT Growth Chart: WHO (Girls, 0- 2 years) Head Circumference 44.5 cm 01/08/2006 3:47 PM CDT Head Circumference Percentile 91.67% 01/08/2006 3:47 PM CDT Growth Chart: WHO (Girls, 0- 2 years) Body Mass Index 19.31 01/08/2006 3:47 PM CDT Body Mass Index Percentile 92.81% 01/08/2006 3:4 7 PM CDT Growth Chart: WHO (Girls, 0- 2 years) documented in this encounter Plan of Treatment Not on file documented as of this encounter Visit Diagnoses Not on filedocumented in this encounter Care Teams Manager Configuration Relationship Specialty Start Date End Date Torsten [...]
--- OUTSIDE RECORDS SUMMARY | 2025-03-06 08:09 | XMS_ITS | Clinical Summary ---
Author Organization [facility] Address [address] [place] [address] Care Team Providers Care Bus Driver Supervisor Name Role Phone Unavailable Primary Care Provider Unavailabl e Allergies No known active allergies Medications sulfamethoxazole -trimethoprim (BACTRIM DS) 800-160 mg tabletIndication s:Cellulitis of right axilla Take 1 Tablet by mouth 2 times daily for 10 days. 20 Tablet 03/03/2025 Active Active Problems No known active problems Encounters Date Type Department Care Team Description 03/03/2025 2:50 PM CDT Office Visit [facility] [place] [address] [place] [phone] Sandra Salas FNP Cellulitis of right axilla (Primary Dx) from Last 3 Months Social History Tobacco Use Types Packs/Day Years Used Date Smoking Tobacco: Never Smokeless Tobacco: Never Tobacco Cessation:Counseling Given: Not Answered Alcohol Use Standard Drinks/Week Comments Never 0 (1 standard drink = 0.6 oz pur e alcohol) Comments No Sex and Gender Information Value Date Recorded Sex Assigned at Not on file Legal Sex Female 2:47 PM CDT Gender Identity Not on file Sexual Orientation Not on file Last Filed Vital Signs Vital Sign Reading Time Taken Comments Blood Pressure 116/78 03/03/2025 3:07 PM CDT Pulse 78 03/03/2025 3:07 PM CDT Temperature 37.4 C (99.4 F) 03/03/2025 3:07 PM CDT Respiratory Rate 18 03/03/2025 3:07 PM CDT Oxygen Saturation 98% 03/03/2025 3:07 PM CDT Inhaled Oxygen Concentration - - Weight 97.5 kg (215 lb) 03/03/2025 3:07 PM CDT Height 170.2 cm (5' 7) 03/03/2025 3:07 PM CDT Body Mass Index 33.67 03/03/2025 3:07 PM CDT Plan of Treatment Health Maintenance Due Date Last Done Comments CHLAMYDIA SCREENING (ANNUAL) 11-24 YEARS 2016 INFLUENZA VACCINE (#1) 2024 4, 03/22/2023, 02/06/2020, Additional history exists COVID-19 Vaccine (3 - 2024-2 6 season) 2025 04/13/2021, 03/23/2021 DTAP/TDAP/TD VACCINES (7 - T d or Tdap) 11/05/2026 11/05/2016, 12/11/2010, 10/15/2006, Additional history exists HEPATITIS B VACCINES Completed 06/22/2006, 2005, 2005 HPV VACCINES Completed 07/29/2020, 11/05/2016 Insurance [facility]
--- OUTSIDE RECORDS SUMMARY | 2025-03-06 08:09 | XMS_ITS | Encounter Summary ---
Author Organization [facility] Address [address] [place] [address] Care Team Providers Care Environmental Compliance Inspector Name Role Phone Torsten King MD Primary Care Provider [phone] Luke Latif MD Primary Care Provider Unav ailable Patient, None Per Primary Care Provider Premaa Trung Field MD Primary Care Provider [phone] Claudia Castro [facility] Primary Care Provider Claudia Castro [facility] Primary Care Provider Claudia Castro [facility] Primary Care Provider Encounter Details Date Type Department Care Team (Late st Contact Info) Description 06/22/2006 Historical Office Visit [facility] Family Medicine [address] [phone] Luis Landaverde MD Social History Tobacco Use Types Packs/Day Years Used Date Smoking Tobacco: Never Assessed Comments Unknown Sex and Gender Information Value Date Recorded Sex Assigned at Not on file Legal Sex Female 4:54 PM CASING WORKER Gender Identity Female 03/21/2023 4:10 PM CASING WORKER Sexual Orientation Not on file documented as of this encounter Last Filed Vital Signs Vital Sign Reading Time Taken Comments Blood Pressure - - Pulse - - Temperature 35.2 C (95.4 F) 06/22/2006 3:55 PM CASING WORKER Respiratory Rate - - Oxygen Saturation - - Inhaled Oxygen Concentration - - Weight 9.752 kg (21 lb 8 oz) 06/22/2006 3:55 PM CASING WORKER Height 72.4 cm (2' 4.5) 06/22/2006 3:55 PM CASING WORKER Punczl-pzs-Kuxoba Percentile 90.32% 06/22/2006 3 :55 PM CASING WORKER Growth Chart: WHO (Girls, 0- 2 years) Head Circumference 47 cm 06/22/2006 3:55 PM CASING WORKER Head Circumference Percentile 93.42% 06/22/2006 3:55 PM CASING WORKER Growth Chart: WHO (Girls, 0- 2 years) Body Mass Index 18.61 06/22/2006 3:55 PM CASING WORKER Body Mass Index Percentile 92.63% 06/22/2006 3:5 5 PM CASING WORKER Growth Chart: WHO (Girls, 0- 2 years) documented in this encounter Plan of Treatment Not on file documented as of this encounter Visit Diagnoses Not on filedocumented in this encounter Care Teams Environmental Compliance Inspector Relationship Specialty Start Date End Date Torsten [...]
--- OUTSIDE RECORDS SUMMARY | 2025-03-06 08:09 | XMS_ITS | Encounter Summary ---
Author Organization [facility] Address [address] [place] [address] Care Team Providers Care Jig Inspector Name Role Phone Torsten King MD Primary Care Provider [phone] Luke Latif MD Primary Care Provider Unav ailable Patient, None Per Primary Care Provider Unavaila Trung Field MD Primary Care Provider Claudia Castro [facility] Primary Care Provider Claudia Castro [facility] Primary Care Provider Claudia Castro [facility] Primary Care Provider Encounter Details Date Type Department Care Team (Late st Contact Info) Description 2005 Historical Office Visit [address] [place] [address] Lena Crawford NP Social History Tobacco Use Types Packs/Day Years Used Date Smoking Tobacco: Never Assessed Comments Unknown Sex and Gender Information Value Date Recorded Sex Assigned at Not on file Legal Sex Female 4:54 PM SHEET COMBINING OPERATOR Gender Identity Female 03/21/2023 4:10 PM SHEET COMBINING OPERATOR Sexual Orientation Not on file documented as of this encounter Last Filed Vital Signs Vital Sign Reading Time Taken Comments Blood Pressure - - Pulse 162 2005 4:06 PM CDT Temperature 36 C (96.8 F) 2005 4:06 PM CDT Respiratory Rate 40 2005 4:06 PM CDT Oxygen Saturation - - Inhaled Oxygen Concentration - - Weight 4.961 kg (10 lb 15 oz) 2005 4:06 PM CDT Height 55.9 cm (1' 10) 2005 4:06 PM CDT Dhdvig-mow-Lhuoeo Percentile 64.92% 2005 4 :06 PM CDT Growth Chart: WHO (Girls, 0- 2 years) Head Circumference 40 cm 2005 4:06 PM CDT Head Circumference Percentile 94.30% 2005 4:06 PM CDT Growth Chart: WHO (Girls, 0- 2 years) Body Mass Index 15.89 2005 4:06 PM CDT Body Mass Index Percentile 56.33% 2005 4:0 6 PM CDT Growth Chart: WHO (Girls, 0- 2 years) documented in this encounter Plan of Treatment Not on file documented as of this encounter Visit Diagnoses Not on filedocumented in this encounter Care Teams Jig Inspector Relationship Specialty Start Date End Date [...]
--- OUTSIDE RECORDS SUMMARY | 2025-03-06 08:09 | XMS_ITS | Encounter Summary ---
Author Organization [facility] Address [address] [place] [address] Care Team Providers Care Health Careers Instructor Name Role Phone Torsten King MD Primary Care Provider [phone] Luke Latif MD Primary Care Provider Unav ailable Patient, None Per Primary Care Provider Premaa Trung Field MD Primary Care Provider Claudia Castro [facility] Primary Care Provider Claudia Castro [facility] Primary Care Provider [phone] [facility] Primary Care Provider [phone] Encounter Details Date Type Department Care Team (Late st Contact Info) Description 10/15/2006 Historical Office Visit [facility] Family Medicine [address] [place] [address] Luis Landaverde MD Social History Tobacco Use Types Packs/Day Years Used Date Smoking Tobacco: Never Assessed Comments Unknown Sex and Gender Information Value Date Recorded Sex Assigned at Not on file Legal Sex Female 4:54 PM RIM BUSTER Gender Identity Female 03/21/2023 4:10 PM RIM BUSTER Sexual Orientation Not on file documented as of this encounter Last Filed Vital Signs Vital Sign Reading Time Taken Comments Blood Pressure - - Pulse 100 10/15/2006 4:24 PM CDT Temperature 36.6 C (97.8 F) 10/15/2006 4:24 PM CDT Respiratory Rate - - Oxygen Saturation - - Inhaled Oxygen Concentration - - Weight 10.9 kg (24 lb) 10/15/2006 4:24 PM CDT Height 78.7 cm (2' 7) 10/15/2006 4:24 PM CDT Cfxunk-npx-Ibmzdc Percentile 86.71% 10/15/2006 4 :24 PM CDT Growth Chart: WHO (Girls, 0- 2 years) Head Circumference 47 cm 10/15/2006 4:24 PM CDT Head Circumference Percentile 79.68% 10/15/2006 4:24 PM CDT Growth Chart: WHO (Girls, 0- 2 years) Body Mass Index 17.56 10/15/2006 4:24 PM CDT Body Mass Index Percentile 86.72% 10/15/2006 4:2 4 PM CDT Growth Chart: WHO (Girls, 0- 2 years) documented in this encounter Plan of Treatment Not on file documented as of this encounter Visit Diagnoses Not on filedocumented in this encounter Care Teams Health Careers Instructor Relationship Specialty Start Date End Date Torsten [...]
--- OUTSIDE RECORDS SUMMARY | 2025-03-06 08:10 | XMS_ITS | Encounter Summary ---
Author Organization [facility] Address [address] [place] [address] Care Team Providers Care Slitter Scorer Name Role Phone Torsten King MD Primary Care Provider [phone] Luke Latif MD Primary Care Provider Unav ailable Patient, None Per Primary Care Provider Premaa Trung Field MD Primary Care Provider Claudia Castro [facility] Primary Care Provider [phone] [facility] Primary Care Provider [phone] [facility] Primary Care Provider [phone] Encounter Details Date Type Department Care Team (Latest Contact Info) Description 02/07/2009 Historical Office Visit [facility] Family Medicine [address] [place] [id number] Luis Landaverde MD Fever, Unspecified Social History Tobacco Use Types Packs/Day Years Used Date Smoking Tobacco: Never Assessed Comments Unknown Sex and Gender Information Value Date Recorded Sex Assigned at Not on file Legal Sex Female 4:54 PM CHROME POLISHER Gender Identity Female 03/21/2023 4:10 PM CHROME POLISHER Sexual Orientation Not on file documented as of this encounter Last Filed Vital Signs Vital Sign Reading Time Taken Comments Blood Pressure 76/50 02/07/2009 10:52 AM CDT Pulse 100 02/07/2009 10:52 AM CDT Temperature 36.8 C (98.3 F) 02/07/2009 10:52 AM CDT Respiratory Rate 24 02/07/2009 10:52 AM CDT Oxygen Saturation - - Inhaled Oxygen Concentration - - Weight 16.4 kg (36 lb 3.2 oz) 02/07/2009 10:52 A M CDT Height - - Body Mass Index - - documented in this encounter Plan of Treatment Not on file documented as of this encounter Visit Diagnoses Diagnosis Fever, unspecified documented in this encounter Care Teams Slitter Scorer Relationship Specialty Start Date End Date Torsten [...]
--- OUTSIDE RECORDS SUMMARY | 2025-03-06 08:10 | XMS_ITS | Patient Health Record ---
Author Organization [facility] Address [address] [place] [address] Care Team Providers Care Diabetes Trainer Name Role Phone Jean Be Unavailable [phone] Allergies No Known Allergies Reason For Referral No Information Medications Medication SIG (Take, Route, Frequency, Duration) Notes Start Date End Date Status Cryselle-28 0.3-30 MG-MCG TAKE 1 TABLET BY MOUTH DAILY Oral; Duration: 84 Days Active Minocycline HCl 100 MG TAKE 1 CAPSULE BY MOUTH TWICE DAILY Oral; Duration: 30 Days Active Ibuprofen 400 MG Oral daily; Duration: 0 take 1 (one) tablet by Oral route daily as needed 03/27/2014 Unknown Social History Tobacco Use: Social History Observation Description Date Details (start date - stop date) Never Smoker NA - NA Tobacco Use/Smoking Question Answer Notes Tobacco use: nonsmoker Problems Problem Type SNOMED Code ICD Code Onset Dates Problem Status W/U Status Risk Notes Problem Arthralgia of the upper arm (504105587) Right elbow pain (M25.521) Active confirmed Problem Closed fracture of lower end of radius (05351904) Fx Distal Radius Ot (813.42) 03/27/2014 Active confirmed Plan Of Treatment No Information Insurance Providers Payer Name Payer Address Payer Phone Subscriber Number Group Number Insured Name Patient Relationship to Insured Coverage Start Date Coverage End Date R [facility] [address] [address] [place] [address] [id number] [place], [place] Self - patient is the insured 2 [employer] [address] [place] [address] [id number] ANDREW PEDERSON Child - Insured has Financial Responsibility Medical (General) History Medical History History ICD Code past medical history, Surgical History Surgery Date(Month/Year) General Surgery General surg esdras Plastic surgery, facial reconstruction,(dog bite), 2012. R Wrist pinning 2013 Tonsil removal 2020
--- OUTSIDE RECORDS SUMMARY | 2025-03-06 08:10 | XMS_ITS | Encounter Summary ---
Author Organization [facility] Address [address] [place] [address] Care Team Providers Care Head Baggage Porter Name Role Phone Torsten King MD Primary Care Provider [phone] Luke Latif MD Primary Care Provider Unav ailable Patient, None Per Primary Care Provider Premaa Trugn Field MD Primary Care Provider [phone] Claudia Castro [facility] Primary Care Provider Claudia Castro [facility] Primary Care Provider [phone] Claudia Castro [facility] Primary Care Provider [phone] Encounter Details Date Type Department Care Team (Latest Contact Info) Description 12/11/2010 Historical Office Visit [facility] Family Medicine [address] [place] [phone] Luis Salguero MD Need for prophylactic vaccination and inoculation against varicella; Vaccin for DTP + polio; Ltf-jdicdh-fjyhf-rubel la; Other general medical examination for administrative purposes Social History Tobacco Use Types Packs/Day Years Used Date Smoking Tobacco: Never Assessed Comments Unknown Sex and Gender Information Value Date Recorded Sex Assigned at Not on file Legal Sex Female 4:54 PM PRINTED 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 Gender Identity Female 03/21/2023 4:10 PM PRINTED CIRCUIT BOARDS CONTACT PRINTER Sexual Orientation Not on file documented as of this encounter Last Filed Vital Signs Vital Sign Reading Time Taken Comments Blood Pressure 92/74 12/11/2010 3:23 PM CDT Pulse 88 12/11/2010 3:23 PM CDT Temperature 36.4 C (97.6 F) 12/11/2010 3:23 PM CDT Respiratory Rate 16 12/11/2010 3:23 PM CDT Oxygen Saturation - - Inhaled Oxygen Concentration - - Weight 22.4 kg (49 lb 6.4 oz) 12/11/2010 3:23 PM CDT Height 114.3 cm (3' 9) 12/11/2010 3:23 PM CDT Vvfeoo-smr-Oqmjcz Percentile 83.50% 12/11/2010 3 :23 PM CDT Growth Chart: [facility] (Girls, 2- 20 Years) Body Mass Index 17.15 12/11/2010 3:23 PM CDT Body Mass Index Percentile 87.46% 12/11/2010 3:2 3 PM CDT Growth Chart: [facility] (Girls, 2- 20 Years) documented in this encounter Progress Notes * Luis Salguero MD - 12/11/2010 3:23 PM CDT Nursing Chief Complaint/Reason For Encounter SCHOOL PX Accompanied by: PARENTS, Vision screen, left eye, right eye, both eyes together: RT 20/30,LT 20/25,No high cholesterol risk questionnaire completed, Risk of high cholesterol absent, No tuberculosis risk questionnaire completed Subjective Med List last modified Dec 11 2010 acetaminophen 325 mg/10.15 mL Oral Susp, 2 cc given by mouth per dr salguero, 2 ml prescribed discontinued discontinued discontinued Preferred Pharmacy [facility] - [place], [place] ([place] [facility] Allergies NKA Past Med/Surg History Procedures Tuberculosis (TB) Skin Test(1) - right fore arm 0 m no induration; Last Performed: 01/24/2009 Health Maintenance Procedures Tuberculosis (TB) Skin Test(1) - right fore arm 0 m no induration; Last Performed: 01/24/2009 Health Maintenance Immunizations DTaP vacc 1st; Dates: 2005; 2005; 01/08/2006; 10/15/2006 DTaP-IPV vacc, 4-6 yrs, IM; Dates: 12/11/2010 Flu vacc, 6-35 mo; Dates: 03/23/2006 HepB/HIB vacc; Dates: 2005; 2005; 06/22/2006 IPV (Poliovirus, IPV, SC) 1st; Dates: 2005; 2005; 01/08/2006 MMR vacc (2 dose); Dates: 10/15/2006; 12/11/2010 Prevnar (Pneumococcal conj vacc, age < 5) 1st; Dates: 2005; 2005; 01/08/2006; 06/22/2006 Rotovirus vaccine, oral; Dates: 2005 Varicella vacc, SC; Dates: 02/11/2009; 12/11/2010 Social History Reviewed: 12/11/2010 Personal: Ethnicity: /; Race: C; Multiple : No Objective Vital Signs Temp: *97.6 ??F (Skin) [36.5??C] HR: 88 RR: 16 Blood Pressure: 92/74 (L arm sitting Adult-std cuff) Height: 45 in [114.3 cm] Weight: 49.4 lbs [ 22.407 kg ] BMI: *17.2 SBP%: 41.2 DBP%: 95.8 BSA: 0.836 Date/Time: Dec 11 2010 15:23 Assessment Assessments Billing Detail Medication Management: New/current prescription meds Review and/or order of test in the medicine section of CPT S: She is here with her mom, stepfather, and older sister. She is getting ready to go into kindergarten. O: HEENT: Oropharynx: Saks and moist. Nasal passages are patent. No dental caries. Tympanic membranes are clear bilaterally. Cardiovascular: Regular rate and rhythm, without murmur, S1 and S2 heard. No S3. No rub. No gallop. Respiratory: Clear to auscultation without rales, wheezes, or crackles. GI: Abdomen: Soft, nontender. Bowels sounds are positive without any masses. and rectal exams are not performed. Extremities: Free range of motion x4 without any edema. Neuro: No obvious motor and sensory deficits. Cranial nerves II-X grossly intact. A: Kindergarten physical. P: DX: See EMR. TX: See EMR. ED: Routine kindergarten information was given, including watching for constipation, abdominal pain, as well as infectious disease exposure. Psoici-jf-Tiezob with me at her yearly appointment. Soonerif needed. The patient's mom, who was present today, verbalized understanding of above plan. Otherwise, continue present management. //ed Plan Prescription Orders Rx Cart - Dec 11 2010 17:24 acetaminophen 325 mg/10.15 mL Oral Susp, 2 cc given by mouth per dr salguero, *Samples Given Lot #:[id number] Expiration Date:04/13, 2 ml, No refills Cart Status: Submitted Route: Phone Rx Cart Order Notes: Phone prescriptions to [place], [place] ([place]) phone: [phone] fax: [phone] Immunization Orders DTaP-IPV vacc, 4-6 yrs, IMMMR vacc (2 dose)Varicella vacc, SC Peds Patient Education Information Written and verbal information given. Caregiver receptive and voiced understanding. No review needed. Contributors to this Visit Note Documenting Clinician: Liam PICKERING - Role: Clinical; Nurse; Procedure Station Repairer; Referral Processor; Rx Processor Time: Dec 11 2010 15:23 Action: Angeles PICKERING - Role: Clinical; Nurse; Procedure Station Repairer; Referral Processor; Rx Processor Time: Dec 11 2010 16:23 Action: Leatha SALGUERO - Role: Clinician; [place] physician Time: Dec 12 2010 23:44 Action: Leatha SALGUERO - Role: Clinician; [place] physician Time: Dec 12 2010 23:44 Action: Teri SALGUERO - Role: Clinician; [place] physician Time: Dec 29 2010 10:35 Action: Attest Lead Questionnaire [place] Department of Public Health Childhood Lead Risk Assessment Questionnaire ALL CHILDREN 6 MONTHS THROUGH 6 YEARS OF AGE MUST BE ASSESSED FOR LEAD POISONING ([facility] 45/6.2) Name: HEATH MIKE Age: 5 yr date: 2005 Todays Date: December 11, 2010 ZIP Code: [id number] Respond to the following questions: R E S PO N S E: 1. Is this child eligible for or enrolled in Medicaid, Head Start, All Kids or WIC? No 2. Does this child have a sibling with a blood lead level of 10 mcg/dL or higher? No 3. Does this child live in or regularly visit a home built before 1977? No 4. In the past year, has this child been exposed to repairs, repainting, or renovation of a home build before 1977? No 5. Is this child a refugee or an adoptee from any foreign country? No 6. Has this child ever been to [place], [place] or [place], countries (i.e. [place] or [place]), or any country where exposure to lead from certain items could have occurred (for example, cosmetics, home remedies, folk medicines or glazed pottery)? No 7. Does this child live with someone who has a job or a hobby that may involve lead (for example, jewelry making, building renovation or repair, bridge construction, plumbing, furniture refinishing, or work with automobile batteries or radiators, lead solder, leaded glass, lead shots, bullets or lead fishing sinkers)? No 8. At any time, has the child lived near a factory where lead is used (for example, a lead smelter or pain factory)? No 9. Does this child reside in a high-risk ZIP code area? No Lead Questionnaire completed? Lead questionnaire completed Risk of Lead Toxicity Present? Risk of lead toxicity absent A blood test should be performed on children: ?? with any Yes or Don't know response ?? living in a high-risk ZIP code area All Medicaid-eligible children should have a blood lead test at 12 months of age and at 24 months of age . If a Medicaid-eligible child between 36 and 72 months of age has not been previously tested, a blood lead test should be performed. If there is any Yes or Don't know response; and ?? there has been no change in the child's living conditions; and ?? the child has proof of two consecutive blood lead test results (documented below) that are each less than 10 mcg/dL (with one test at age 2 or older), a blood lead test is not needed at this time. If responses to all the questions are NO, reevaluate at every well child or more often if deemed necessary. Test 1: Blood Lead Result: mcg/dL Date: Test 2: Blood Lead Reslt: mcg/dL Date: [place] Lead Program [phone] or [phone] TTY (hearing impaired use only) [phone] documented in this encounter Plan of Treatment Not on file documented as of this encounter Visit Diagnoses Diagnosis Need for prophylactic vaccination and inoculation against varicella Need for prophylactic vaccination with ihrehrctlq-zehjwxx-nvwfpvzud with poliomyelitis (DTP + polio) vaccine Need for prophylactic vaccination with kmrhqus-mlyfp-lwysdzc (MMR) vaccine Other general medical examination for administrative purposes documented in this encounter Care Teams Head Baggage Porter Relationship Specialty Start Date End Date Torsten King MD PCP - General Family Medicine 03/25/14 11/23/15 Luke Latif MD PCP - General Family Medicine 11/24/15 05/06/17 Patient, None Per PCP - General 08/05/17 08/15/17 Trugn Carlson MD PCP - General Pediatrics 08/16/17 03/06/18 Claudia Castro FNP PCP - General Family Medicine 03/07/18 11/14/18 Claudia Castro FNP PCP - General Family Medicine 11/21/18 02/14/19 Claudia Castro FNP PCP - General Family Medicine 05/23/19 documented as of this encounter
--- OUTSIDE RECORDS SUMMARY | 2025-03-06 08:10 | XMS_ITS | Clinical Summary ---
Author Organization [facility] Address [address] [place] [address] Phone Care Team Providers Care Tail Worker Name Role Phone CastroClaudia alejandro NICOLETTE Primary Care Provider [phone] Allergies No known active allergies Medications * This document contains information received from the source organization and may not represent a complete record from that organization. acetaminophen (CHILDREN'S TYLENOL) 160 mg/5 mL oral suspension Take by mouth every 6 (six) hours as needed for Fever. Active clindamycin (CLINDAGEL) 1 % topical gel Apply topically to affected area in the morning and at bedtime 3 Active loratadine (CLARITIN) 10 mg tablet Take 10 mg by mouth every day as needed Active ampicillin (PRINCIPEN) 500 mg capsule Take 500 mg by mouth 2 (two) times daily Active norgestrel-ethinyl estradioL (LOW-OGESTREL 28) 0.3-30 mg-mcg tabletIndications: Encounter for surveillance of contraceptive pills Take 1 tablet by mouth every day 84 tablet 5 Active Active Problems Problem Noted Date Diagnosed Date Acne vulgaris 07/25/2019 Allergic rhinitis 10/12/2017 Resolved Problems Problem Noted Date Diagnosed Date Resolved Date Encounter for well exam with out abnormal findings of patient 18 years of age or older 09/04/2023 11/01/2023 Syncope 05/12/2022 10/30/2024 Dizziness 02/27/2022 10/30/2024 Tonsil stone 11/13/2020 10/30/2024 Fatigue 08/22/2020 10/30/2024 Encounters Date Type Department Care Team Description 01/03/2025 Refill [facility] [address] [place] [address] Claudia Castro, MOTHER TESTER Refill Request 12/04/2024 Results Follow-Up [facility] [address] [place] [address] Claudia Castro, MOTHER TESTER from Last 3 Months Immunizations Immunization Administration Dates Next Due DTAP/IPV (Kinrix) 12/11/2010 DTaP-Acellular (Infanrix) 10/15/2006,12/2005,2005,08/13 HEP B/HIB (Comvax) 06/22/2006,2005, 006 Human Papillomavirus (Gardasil 9) 07/29/2020,10/2016 Influenza (FLUARIX) vaccine 03/08/2024 Influenza (Flu Quad PF) 03/22/2023,02/06/2020 Mnmzvtl-Gtinf-Bvjoxwt - MMR (Priorix) 12/11/2010 ,10/15/2006 Meningococcal (MENACTRA) 11/05/2016 Meningococcal (MENVEO) 09/25/2022 Pneumococcal Polysaccharide (Pneumovax 23) 06/22/2006,01/08/2006,2005,08/13 Pneumonia (PREVNAR 7) 2005,2005 Polio Virus (IPOL) 01/08/2006,2005, 006 Rotavirus (Rotateq) 2005 Rotavirus - Tetravalent 2005 T-dap (BOOSTRIX) 11/05/2016 TB-PPD 11/06/2024,,04/13/2023,04/05,03/22/2023 Varicella (VARIVAX) 12/11/2010,02/11/2009 Family History Medical History Relation Name Comments HIGH CHOLESTEROL Maternal Grandmother Hypertension Maternal Grandmother Uterine Cancer Maternal Grandmother No Pertinent Hx Mother HIGH CHOLESTEROL Paternal Grandmother Hypertension Paternal Grandmother Sudden Sister Relation Name Status Comments Father Alive Maternal Grandmother Mother Alive Paternal Grandmother Sister Social History Tobacco Use Types Packs/Day Years Used Date Smoking Tobacco: Never Smokeless Tobacco: Never Tobacco Cessation:Counseling Given: No Alcohol Use Standard Drinks/Week Comments No 0 (1 standard drink = 0.6 oz pur e alcohol) Comments No Sex and Gender Information Value Date Recorded Sex Assigned at Not on file Legal Sex Female 11:26 AM CDT Gender Identity Female 06/21/2023 8:44 AM ELECTRICAL ELECTRONICS ENGINEERS Sexual Orientation Not on file Last Filed Vital Signs Vital Sign Reading Time Taken Comments Blood Pressure 111/70 10/30/2024 2:18 PM CDT Pulse 77 10/30/2024 2:18 PM CDT Temperature 36.3 C (97.3 F) 10/30/2024 2:18 PM CDT Respiratory Rate 14 10/30/2024 2:1 8 PM CDT Oxygen Saturation 98% 08/30/2023 2:06 PM CDT Inhaled Oxygen Concentration - - Weight 96.3 kg (212 lb 3.2 oz) 10/30/2024 2:18 P M CDT Height 170.2 cm (5' 7) 10/30/2024 2:18 PM CDT Head Circumference 47 cm 10/15/2006 4:24 PM CDT Head Circumference Percentile 79.68% 10/15/2006 4:24 PM CDT Growth Chart: WHO (Girls, 0- 2 years) Body Mass Index 33.24 10/30/2024 2:18 PM CDT Plan of Treatment Health Maintenance Due Date Last Done Comments Meningococcal B Vaccine (1 of 2 - Standard) 2021 COVID-19 Vaccine ( season) 2025 04/13/2021, 03/23/2021 Influenza Vaccine (#1) 2025 , 03/22/2023, 02/06/2020 Depression Screening 10/30/2025 10/30/2024, 08/30/19 24 DTaP/Tdap/Td Vaccines (7 - Td or Tdap) 11/05/2026 11/05/2016, 12/11/2010, 10/15/2006, Additional history exists Rotavirus Vaccines Aged Out 2005, 2005 No longer eligible based on patient's age to complete this topic HIB Vaccines Completed 06/22/2006, 10/31, 2005 Hepatitis B Vaccines Completed 06/22/2006, 2005, 2005 Pneumococcal Vaccines Aged Out 06/22/2006 , 01/08/2006, 2005, Additional history exists No longer eligible based on patient's age to complete this topic IPV Vaccines Completed 12/11/2010, 12/2005, 2005, Additional history exists MMR Vaccines Completed 12/11/2010, 10/15/2006 Varicella Vaccines Completed 12/11/2010, 02/11/2009 HPV Vaccines Completed 07/29/2020, 11/05/2016 Meningococcal Vaccine (ACWY) Completed 09/25/2022, 11/05/2016 Hepatitis A Vaccines Aged Out No long er eligible based on patient's age to complete this topic Medical Devices Implanted Type Area Outside Machinist Device Identifier Shelf Expiration Date Model / Serial / Lot 4 K-Wire Implanted:Qty: 1 on 04/09/2014 by Bob Ly MD Right: Wrist [id number] / / [place] [address] [employer] [facility] [place] [address] [employer] Care Teams Tail Worker Relationship Specialty Start Date End Date Claudia Castro APRN [address] [place] [id number] PCP - General 05/23/19
--- OUTSIDE RECORDS SUMMARY | 2025-03-06 08:10 | XMS_ITS | Encounter Summary ---
Author Organization [facility] Address [address] [place] [address] Care Team Providers Care Time Cycle Operator Name Role Phone Torsten King MD Primary Care Provider [phone] Luke Latif MD Primary Care Provider Unav ailable Patient, None Per Primary Care Provider Premaa Trung Field MD Primary Care Provider Claudia Castro [facility] Primary Care Provider [phone] Claudia Castro [facility] Primary Care Provider [phone] Claudia Castro [facility] Primary Care Provider [phone] Encounter Details Date Type Department Care Team (Latest Contact Info) Description 01/21/2009 Historical Office Visit [facility] Family Medicine [facility] [address] [place] [id number] Pankaj Baez, ASSOCIATE DIRECTOR QA Routine or Child Health Check; Screening Examination for Pulmonary Tuberculosis; Screening for Unspecified Condition Social History Tobacco Use Types Packs/Day Years Used Date Smoking Tobacco: Never Assessed Comments Unknown Sex and Gender Information Value Date Recorded Sex Assigned at Not on file Legal Sex Female 4:54 PM CONCRETE STONE FINISHING SUPERVISOR Gender Identity Female 03/21/2023 4:10 PM CONCRETE STONE FINISHING SUPERVISOR Sexual Orientation Not on file documented as of this encounter Last Filed Vital Signs Vital Sign Reading Time Taken Comments Blood Pressure 98/52 01/21/2009 4:02 PM CDT Pulse 92 01/21/2009 4:02 PM CDT Temperature 36.7 C (98.1 F) 01/21/2009 4:02 PM CDT Respiratory Rate 20 01/21/2009 4:02 PM CDT Oxygen Saturation - - Inhaled Oxygen Concentration - - Weight 16.4 kg (36 lb 3.2 oz) 01/21/2009 4:02 PM CDT Height 100.3 cm (3' 3.5) 01/21/2009 4:02 PM CDT Xrlpam-mch-Ogrjdr Percentile 73.14% 01/21/2009 4 :02 PM CDT Growth Chart: CDC (Girls, 2- 20 Years) Body Mass Index 16.31 01/21/2009 4:02 PM CDT Body Mass Index Percentile 74.31% 01/21/2009 4:0 2 PM CDT Growth Chart: CDC (Girls, 2- 20 Years) documented in this encounter Plan of Treatment Not on file documented as of this encounter Visit Diagnoses Diagnosis Screening for unspecified condition Screening examination for pulmonary tuberculosis documented in this encounter Care Teams Time Cycle Operator Relationship Specialty Start Date End Date [...]
--- OUTSIDE RECORDS SUMMARY | 2025-03-06 08:10 | XMS_ITS | Encounter Summary ---
Author Organization [facility] Address [address] [place] [address] Care Team Providers Care Management Advisor Name Role Phone Torsten King MD Primary Care Provider [phone] Luke Latif MD Primary Care Provider Unav ailable Patient, None Per Primary Care Provider Premaa Trung Field MD Primary Care Provider [phone] Claudia Castro [facility] Primary Care Provider [phone] Claudia Castro [facility] Primary Care Provider [phone] Claudia Catsro [facility] Primary Care Provider [phone] Encounter Details Date Type Department Care Team (Latest Contact Info) Description 11/27/2011 Historical Office Visit [facility] Family Medicine [address] [place] [address] Luis Landaverde MD Other general medical examination for administrative purposes Social History Tobacco Use Types Packs/Day Years Used Date Smoking Tobacco: Never Assessed Comments Unknown Sex and Gender Information Value Date Recorded Sex Assigned at Not on file Legal Sex Female 4:54 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 Gender Identity Female 03/21/2023 4:10 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 Sexual Orientation Not on file documented as of this encounter Last Filed Vital Signs Vital Sign Reading Time Taken Comments Blood Pressure 94/68 11/27/2011 2:49 PM CDT Pulse 76 11/27/2011 2:49 PM CDT Temperature 36.9 C (98.4 F) 11/27/2011 2:49 PM CDT Respiratory Rate - - Oxygen Saturation - - Inhaled Oxygen Concentration - - Weight 28.2 kg (62 lb 3 oz) 11/27/2011 2:49 PM C DT Height 121.3 cm (3' 11.75) 11/27/2011 2:49 PM C DT Body Mass Index 19.18 11/27/2011 2:49 PM CDT Body Mass Index Percentile 95.03% 11/27/2011 2:4 9 PM CDT Growth Chart: [facility] (Girls, 2- 20 Years) documented in this encounter Progress Notes * Luis Landaverde MD - 11/27/2011 2:49 PM CDT Nursing Chief Complaint/Reason For Encounter School px- 1st grade: Medication list given and reviewed with patient/family and voices understanding. Subjective Allergies Reviewed: Nov 27 2011 NKA Past Med/Surg History Problems Constipation (1); First Visit: 2005, Last Visit: 2005 Eczema (incl atopic dermatitis) (1); First Visit: 2005, Last Visit: 2005 Otitis media (2); First Visit: Feb 07 2009, Last Visit: Jun 29 2009 Past Med/Surg History Procedures Tuberculosis (TB) Skin Test (1) - right fore arm 0 m no induration; Last Performed: 01/24/2009 Health Maintenance Procedures Tuberculosis (TB) Skin Test (1) - right fore arm 0 m no [...] 2005 Varicella vacc, [place]; Dates: 02/11/2009; 12/11/2010 Med List last modified Nov 27 2011 Reviewed: Nov 27 2011 discontinued discontinued Preferred Pharmacy [facility] - [place], [place] ([place]) [JAIDENMARIBELLCITLALY, Lisbeth[address] [facility]] Family History last modified Aug 17 2008 Positive Family History for: Coronary artery disease Hypertension Mental disorder Additional comments: grabdfather- seizures Social History Personal: Ethnicity: Not ; Race: WHITE; Primary language: INDONESIAN Objective Vital Signs Temp: 98.4??F (Skin) [36.9??C] HR: 76 bpm Blood Pressure: 94/68 mmHg (L arm sitting Child cuff) Height: 47.75 in [121.285 cm](74.0 percentile) Weight:62 lb 3 oz lbs [28.208 kg ](93.6 percentile) BMI: 19.2 (95.1 percentile) SBP%: 42.1 DBP%: 84.5 BSA: 0.963 Pain Scale: 0/10 (Numeric) Other and Notes: Right eye- 20/30 Left eye-20/25 Date/Time: Nov 27 2011 14:49 Physical Exam Constitutional: Well groomed, Alert, No acute distress, Body habitus normal, Well nourished Eyes (R,L): Pupils equal and reactive, Conjunctiva normal, Sclera normal, Eyelid normal ENT: Nasal septum normal, Nasal turbinates normal, Nasal mucosa normal, Oropharynx normal, Gingiva normal, Dentition normal Ears (R,L): External ear normal, Ear canal normal, Tympanic membrane normal She was injured by a dog bite (per Mom Dog shots UTD). Full thickness laceration on the right side of face from trachus to edge of mouth. Hospitalized with Plastic surgery. Healing well with approximated scar. Per Mom she is shy but has no obvious psychiatric residual from this insult. Neck: Neck symmetric, Neck mass absent Cardiovascular: PMI normal to palpation, Normal S1, Normal S2, No heart murmur found Respiratory: Normal shape and symmetry of chest, Normal respiratory effort, Breath sounds normal magnolia or rhonchi, No wheezing heard Gastrointestinal: Bowel sounds normal, No abdominal tenderness, No abdominal mass Integumentary: Skin warm and dry, Skin color normal, Rashes not found, Abnormal moles not found, Subcutaneous masses not found, Fingers and nails normal to inspection Neurologic: Normal gait, Cranial nerves II-XII grossly intact Musculoskeletal Neck: Neck inspection normal, Neck range of motion normal, No neck instability found, Neck tenderness absent, Neck strength normal, Neck muscle tone normal Lumbar Spine Musculoskeletal: Lumbar spine inspection normal, Lumbar spine range of motion normal, No lumbar spine instability found, Lumbar spine tenderness absent, Lumbar spine strength normal, Lumbar spine muscle tone normal Upper extremities (R,L): Upper extremity inspection normal, Upper extremity range of motion normal,No instability of upper extremity found, Upper extremity tenderness absent, Upper extremity strength normal, Upper extremity muscle tone normal Lower Extremities (R,L): Lower extremity inspection normal, Lower extremity range of motion normal,No lower extremity instability found, Lower extremity tenderness absent, Lower extremity strength normal, Lower extremity muscle tone normal Foot (R,L): Normal dorsalis pedis and posterior tibial pulses. No edema present. Assessment Assessments Exam, general, routine (Checkup) (ICD-9 billing code: V70.0) A total of 15 minutes was spent in direct patient contact. School physical. She is entering 2nd grade. She suffered a right facial laceration from a dog bite that required plastic surgery. She is not going through any kind of counseling. She is here with chiquita today. She says she is coping well. She has no further followup plastic surgery. Please see EMR. Vadswg-or-Yujhdd with me yearly. I spent approximately 15 minutes in counseling. The patient is shy. The patient and mom verbalized understanding of above plan. Otherwise, continue present management. //ed Plan: Patient Education Information: Written and verbal information given to patient. Patient receptive and voiced understanding. No review needed.: Recheck in: yearly sooner if needed TX RA . Patient may continue medications for chronic conditions until next scheduled visit. Contributors to this Visit Note Documenting Clinician: Liam MEDINA - Staff Type: NONE Time: Nov 27 2011 14:49 Action: Angeles Hilliard Type: NONE Time: Nov 27 2011 14:51 Action: Leatha Hilliard Type: Time: Nov 28 2011 19:04 Action: Edit Liam LANDAVERDE - Staff Type: Time: Nov 28 2011 19:04 Action: Sign Liam LANDAVERDE - Staff Type: Time: Nov 29 2011 20:02 Action: Attest documented in this encounter Plan of Treatment Not on file documented as of this encounter Visit Diagnoses Diagnosis Other general medical examination for administrative purposes documented in this encounter Care Teams Management Advisor Relationship Specialty Start Date End Date Torsten [...]
--- OUTSIDE RECORDS SUMMARY | 2025-03-06 08:10 | XMS_ITS | Encounter Summary ---
Author Organization [facility] Address [address] [place] [address] Phone Care Team Providers Care Peanut Cleaner Name Role Phone Claudia Castro DIRECTOR SMB SALES Primary Care Provider [phone] Reason for Visit * Reason Comments Refill Request Encounter Details Date Type Department Care Team (Late st Contact Info) Description 10/01/2024 Refill [facility] [address] [place] [address] Claudia Castro, DIRECTOR SMB SALES [address] [place], [place] [address] Refill Request Social History Tobacco Use Types Packs/Day Years Used Date Smoking Tobacco: Never Smokeless Tobacco: Never Alcohol Use Standard Drinks/Week Comments No 0 (1 standard drink = 0.6 oz pur e alcohol) Comments No Sex and Gender Information Value Date Recorded Sex Assigned at Not on file Legal Sex Female 11:26 AM CDT Gender Identity Female 06/21/2023 8:44 AM 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 Please note: Per policy [facility] staff does not check for prescriptions/refills at pharmacy. Any applicable manual reviews completed. 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 Showing future appointments within next 180 days and meeting all other requirements Associated protocol - [facility]/A documented in this encounter Plan of Treatment Not on file documented as of this encounter Visit Diagnoses Diagnosis Encounter for surveillance of contraceptive pills Surveillance of previously prescribed contraceptive pill documented in this encounter Additional Health Concerns Assessment Noted Time A Hypertension Plan of Care has been documented for the patient 08/30/2023 2:10 PM CDT documented as of this encounter Care Teams Peanut Cleaner Relationship Specialty Start Date End Date Claudia Castro APRN [address] [place] [address] PCP - General 05/23/19 documented as of this encounter
--- OUTSIDE RECORDS SUMMARY | 2025-03-06 08:10 | XMS_ITS | Encounter Summary ---
Author Organization [facility] Address [address] [place] [address] Care Team Providers Care Tearer Press Clipping Name Role Phone Torsten King MD Primary Care Provider [phone] Luke Latif MD Primary Care Provider Unav ailable Patient, None Per Primary Care Provider Trung Rodriguez MD Primary Care Provider Claudia Castro [facility] Primary Care Provider Claudia Castro [facility] Primary Care Provider Claudia Castro [facility] Primary Care Provider Encounter Details Date Type Department Care Team (Late st Contact Info) Description 05/30/2008 Historical Office Visit [id number] [employer] [id number] Kuldip Garcia PA-C Social History Tobacco Use Types Packs/Day Years Used Date Smoking Tobacco: Never Assessed Comments Unknown Sex and Gender Information Value Date Recorded Sex Assigned at Not on file Legal Sex Female 4:54 PM DEICER INSPECTOR PNEUMATIC Gender Identity Female 03/21/2023 4:10 PM DEICER INSPECTOR PNEUMATIC Sexual Orientation Not on file documented as of this encounter Last Filed Vital Signs Vital Sign Reading Time Taken Comments Blood Pressure - - Pulse - - Temperature 38.9 C (102 F) 05/30/2008 5:47 PM DEICER INSPECTOR PNEUMATIC Respiratory Rate - - Oxygen Saturation - - Inhaled Oxygen Concentration - - Weight 15.9 kg (35 lb) 05/30/2008 5:47 PM DEICER INSPECTOR PNEUMATIC Height - - Body Mass Index - - documented in this encounter Plan of Treatment Not on file documented as of this encounter Visit Diagnoses Not on filedocumented in this encounter Care Teams Tearer Press Clipping Relationship Specialty Start Date End Date Torsten [...] Family Medicine 05/23/19 documented as of this encounter"
--- OUTSIDE RECORDS SUMMARY | 2025-03-06 08:10 | XMS_ITS | Encounter Summary ---
Author Organization [facility] Address [address] [place] [address] Care Team Providers Care Ice Sculptor Name Role Phone Torsten King MD Primary Care Provider [phone] Luke Latif MD Primary Care Provider Unav ailable Patient, None Per Primary Care Provider Premaa Trung Field MD Primary Care Provider [phone] Claudia Castro [facility] Primary Care Provider Claudia Castro [facility] Primary Care Provider [phone] Claudia Castro [facility] Primary Care Provider [phone] Encounter Details Date Type Department Care Team (Latest Contact Info) Description 02/11/2009 Historical Office Visit [facility] Family Medicine [address] [place] [address] Luis Landaverde MD Fever, Unspecified; Need for Prophylactic Vaccination and Inoculation Against Varicella Social History Tobacco Use Types Packs/Day Years Used Date Smoking Tobacco: Never Assessed Comments Unknown Sex and Gender Information Value Date Recorded Sex Assigned at Not on file Legal Sex Female 4:54 PM DIRECTOR OF ACCOUNTS RECEIVABLE Gender Identity Female 03/21/2023 4:10 PM DIRECTOR OF ACCOUNTS RECEIVABLE Sexual Orientation Not on file documented as of this encounter Last Filed Vital Signs Vital Sign Reading Time Taken Comments Blood Pressure - - Pulse 100 02/11/2009 3:43 PM CDT Temperature 36.7 C (98.1 F) 02/11/2009 3:43 PM CDT Respiratory Rate 20 02/11/2009 3:43 PM CDT Oxygen Saturation - - Inhaled Oxygen Concentration - - Weight 16.8 kg (37 lb) 02/11/2009 3:43 PM CDT Height - - Body Mass Index - - documented in this encounter Plan of Treatment Not on file documented as of this encounter Visit Diagnoses Diagnosis Fever, unspecified Need for prophylactic vaccination and inoculation against varicella documented in this encounter Care Teams Ice Sculptor Relationship Specialty Start Date End Date Torsten [...]
--- OUTSIDE RECORDS SUMMARY | 2025-03-06 08:10 | XMS_ITS | Encounter Summary ---
Author Organization [facility] Address [address] [place] [address] Care Team Providers Care Inside Sales Consultant Name Role Phone Torsten King MD Primary Care Provider [phone] Luke Latif MD Primary Care Provider Unav ailable Patient, None Per Primary Care Provider Trung Rodriguez MD Primary Care Provider Claudia Castro [facility] Primary Care Provider Claudia Castro [facility] Primary Care Provider [phone] Claudia Castro [facility] Primary Care Provider [phone] Encounter Details Date Type Department Care Team (Latest Contact Info) Description 10/19/2008 Historical Office Visit [facility] Family [facility] [address] [place] [address] Angelia Silva DO [address] [place] [address] Injury, Other and Unspecified, Hip and Thigh Social History Tobacco Use Types Packs/Day Years Used Date Smoking Tobacco: Never Assessed Comments Unknown Sex and Gender Information Value Date Recorded Sex Assigned at Not on file Legal 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 Gender Identity Female 03/21/2023 4:10 PM BOTTLING MACHINE OPERATOR Sexual Orientation Not on file documented as of this encounter Last Filed Vital Signs Vital Sign Reading Time Taken Comments Blood Pressure - - Pulse 108 10/19/2008 5:59 PM CDT Temperature 36.9 C (98.4 F) 10/19/2008 5:59 PM CDT Respiratory Rate 12 10/19/2008 5:59 PM CDT Oxygen Saturation - - Inhaled Oxygen Concentration - - Weight 13.6 kg (30 lb) 10/19/2008 5:59 PM CDT Height - - Body Mass Index - - documented in this encounter Plan of Treatment Not on file documented as of this encounter Visit Diagnoses Diagnosis Injury, other and unspecified, hip and thigh documented in this encounter Care Teams Inside Sales Consultant Relationship Specialty Start Date End Date Torsten [...]
--- OUTSIDE RECORDS SUMMARY | 2025-03-06 08:10 | XMS_ITS | Encounter Summary ---
Author Organization [facility] Address [address] [place] [address] Care Team Providers Care Library Media Assistant Name Role Phone Torsten King MD Primary Care Provider [phone] Luke Latif MD Primary Care Provider Unav ailable Patient, None Per Primary Care Provider Trung Rodriguez MD Primary Care Provider Claudia Castro [facility] Primary Care Provider Claudia Castro [facility] Primary Care Provider [phone] Claudia Castro [facility] Primary Care Provider [phone] Encounter Details Date Type Department Care Team (Latest Contact Info) Description 06/29/2009 Historical Office Visit [facility] Family Medicine [address] [place] [address] Angelia Silva DO [address] [place] [address] Unspecified otitis media Social History Tobacco Use Types Packs/Day Years Used Date Smoking Tobacco: Never Assessed Comments Unknown Sex and Gender Information Value Date Recorded Sex Assigned at Not on file Legal Sex Female 4:54 PM RENEWALS SPECIALIST Gender Identity Female 03/21/2023 4:10 PM RENEWALS SPECIALIST Sexual Orientation Not on file documented as of this encounter Last Filed Vital Signs Vital Sign Reading Time Taken Comments Blood Pressure - - Pulse 128 06/29/2009 10:37 AM RENEWALS SPECIALIST Temperature 37.1 C (98.8 F) 06/29/2009 10:37 AM RENEWALS SPECIALIST Respiratory Rate 28 06/29/2009 10:37 AM RENEWALS SPECIALIST Oxygen Saturation - - Inhaled Oxygen Concentration - - Weight 16.9 kg (37 lb 4 oz) 06/29/2009 10:37 AM RENEWALS SPECIALIST Height - - Body Mass Index - - documented in this encounter Plan of Treatment Not on file documented as of this encounter Visit Diagnoses Diagnosis Unspecified otitis media documented in this encounter Care Teams Library Media Assistant Relationship Specialty Start Date End Date [...]
--- OUTSIDE RECORDS SUMMARY | 2025-03-06 08:10 | XMS_ITS | Patient Health Record ---
Author Organization [facility] Address [address] [place] [address] Support Name Relationship Address Phone Ronald Nagel Guarantor Unknown [phone] Reason For Referral No Information Plan Of Treatment No Information
[2025-03-06 09:24] LABS: Alanine Aminotransferase 35 U/L (6-35); Albumin Level 4.7 g/dL (3.7-5.6); Alkaline Phosphatase 73 U/L (45-116); Anion Gap 13 mmol/L (4-12); Aspartate Amino Transferase 30 U/L (14-36); Bilirubin,Total 0.4 mg/dL (0.2-1.3); Blood Urea Nitrogen 10 mg/dL (8-21); Calcium 9.9 mg/dL (8.9-10.7); Carbon Dioxide 16 mmol/L (22-30); Chloride 110 mmol/L (98-107); Estimated CRCL calculation 92 ml/min; Estimated Glomerular Filt Rate > 60; Glucose 119 mg/dL (65-110); Lipase 73 U/L (23-300); Potassium 4.7 mmol/L (3.4-5.0); Sodium 139 mmol/L (134-143); Total Protein 7.4 g/dL (6.3-8.6)
[2025-03-06 09:38] LABS: Add Urine Microscopic? YES; Appearance Urine Cloudy (Clear); Glucose Urine UA Negative (Negative); Leukocyte Esterase Ur 2+ LEU/UL (Negative); Need Manual Microscopic Reviewed; Nitrate Urine Negative (Negative); Specific Grav Ur 1.027 (1.001-1.035)
[2025-03-06] MEDS: METOCLOPRAMIDE HCL INJ 10 MG/2 ML VIAL IV PUSH (09:50)
[2025-03-06] MEDS: cefTRIAXone 1 GM in SODIUM CHLORIDE 0.9% IV 50 ML 100 ML IVPB (09:55)
--- NOTE | 2025-03-06 10:07 | P.CONUR_ITS ---
Assessment and Plan Assessment and plan (1) Right ureteral stone: Code(s): N20.1 - Calculus of ureter Status: Acute (2) Suspected UTI: Code(s): R39.89 - Other symptoms and signs involving the genitourinary system Status: Acute Plan 19yF with a 2mm right UVJ stone and suspected UTI - Admit to urology as patient is young and healthy with no other medical comorbidities - Patient chart, vitals, labs, imaging reviewed. She is afebrile and hemodynamically adequate. She has no leukocytosis and her renal function remains within normal limits. Her urinalysis is suspicious for urinary tract infection. She has a 2 mm right UVJ stone with associated hydroureteronephrosis. There are no other urinary tract stones I appreciate on the CT. - NPO, IVF, strain all urine - Will continue broad-spectrum antibiotics (patient received IV ceftriaxone in the ER) and tailor to culture sensitivities as appropriate - Will plan to go to the OR for cystoscopy, right retrograde pyelogram, right ureteral stent placement with possible right ureteroscopy and stone basket extraction if the stone is /visible at the UVJ - The risks, benefits, and alternatives were thoroughly discussed with the patient. The modus operandi of the procedure as well as the risks of the procedure were outlined, including but not limited to pain, bleeding, infection, and potential damage to surrounding structures such as the urethra, bladder, ureter, or kidney. Additionally, the risks of dysuria, hematuria, the inability to reach the stone, inability to place a ureteral stent necessitating placement of a nephrostomy tube, and the potential need for subsequent procedures were reviewed. The necessity of removing any ureteral stent, if placed, was emphasized to the patient. I explained that failure to remove the stent could result in long-term complications to the kidney, ureter, and the genitourinary tract, including but not limited to permanent kidney damage or kidney failure. I also reviewed the temporary nature of ureteral stents, noting that they can cause discomfort similar to renal colic and may lead to irritative voiding symptoms as well as hematuria. The patient was informed that stents are not permanent and must be either removed or exchanged periodically to prevent encrustation and irreversible kidney damage. The patient indicated full understanding of these risks and requirements. The patient has verbally acknowledged comprehension and has agreed to proceed with the surgery Urology Consult Note HPI Date Seen: 03/06/25 Requesting Physician: Dr. Galvan Primary Care Provider: PHYSICIAN NOT ON STAFF Consult Narrative Narrative: Ronald Nagel is a 19 year old otherwise healthy female with no past medical history who presented to the ER today for right flank pain which started 2 days ago. I find history is obtained by the patient, her parents at the bedside, and chart review. She reports associated nausea and vomiting but denies associated fevers, chills, dysuria, gross hematuria, lightheadedness, dizziness. She has never had an acute kidney stone attack or surgery for such before. She reports family history of kidney stones in her father. Workup in the ER including CT scan revealed a 2 mm right UVJ stone with associated hydroureteronephrosis. Her urinalysis was also suspicious for urinary tract infection. Review of Systems 2 Review of Systems: Negative except as noted in HPI. Meds Home Medications and Allergies Allergies Allergy/AdvReac Type Severity Reaction Status Date / Time No Known Allergies Allergy Verified 03/06/25 05:41 Vital Signs Vital Signs - 24 hr 03/06/25 05:39 03/06/25 06:20 03/06/25 06:30 Temperature 36.8 C Pulse Rate 95 82 77 Respiratory Rate 22 H 19 21 H Blood Pressure 136/98 H 138/79 Pulse Oximetry 98 100 100 03/06/25 07:00 Temperature Pulse Rate 93 Respiratory Rate 20 Blood Pressure 132/93 H Pulse Oximetry 99 Exam 2 Narrative: General: Alert, no acute distress Head: Normocephalic, atraumatic Eyes: Extraocular movements intact Neck: No JVD, trachea midline Respiratory: Symmetric chest rise, nonlabored breathing on room air CV: Normal rate, adequate peripheral perfusion Abdomen: Soft, nontender, nondistended : Right CVAT Skin: Warm/dry Extremities: No peripheral edema, no cyanosis Neuro: No focal deficits Psych: Answers questions appropriately, appropriate mood Results Labs 03/06/25 07:46 03/06/25 09:04 Labs: Short CBC 03/06/25 Range/Units 07:46 WBC 8.7 (4.5-10.0) K/mm3 Hgb 13.5 (12.0-15.0) g/dL Hct 39.8 (37.0-47.0) % Plt Count 288 (150-375) k/mm3 BMP 03/06/25 09:04 Sodium 139 Potassium 4.7 Chloride 110 H Carbon Dioxide 16 L BUN 10 Creatinine 1.04 H Glucose 119 H Calcium 9.9 Liver Function 03/06/25 Range/Units 09:04 Total Bilirubin 0.4 (0.2-1.3) mg/dL AST 30 (14-36) U/L ALT 35 (6-35) U/L Alkaline Phosphatase 73 (45-116) U/L Albumin 4.7 (3.7-5.6) g/dL Urine 03/06/25 Range/Units 09:20 Urine Color Yellow (Yellow) Urine Appearance Cloudy H (Clear) Urine pH 6.0 (5.0-9.0) Ur Specific Mertens 1.027 (1.001-1.035) Urine Protein 1+ H (Negative) mg/dL Urine Glucose (UA) Negative (Negative) mg/dL
[2025-03-06] MEDS: KETOROLAC 15 MG/ML VIAL (*BKC) IV PUSH (10:29)
--- NOTE | 2025-03-06 11:28 | ADMGEN ---
This patient, Ronald Nagel, was admitted to 2 Medical Room 260-. Patient/family oriented to hospital policies and general routines including ID bracelet, bed and alarms, visiting hours, pain management, procedures, bathroom and other care routines, personal items, smoking policy, room service/diet, and visiting hours. Information on how to activate the Rapid Response Team has been discussed. Patient/Family are encouraged to report perceived risks to care and to ask questions if they do not understand what they are told or what they should do.
[2025-03-06] MEDS: SODIUM CHLORIDE 0.9% IV 1,000 ML 100 ML IV CONT (11:58)
--- NOTE | 2025-03-06 12:48 | WPDHPUPDATE1 ---
History and Physical Update Update Date/Time: 03/06/25 12:48 History and Physical has been reviewed, including an updated exam of the patient. There are NO changes in the patient's condition. Risks, benefits, and alternatives have been discussed and questions answered. Patient agrees to proceed with procedure.
--- NOTE | 2025-03-06 16:23 | P.PNAN_ITS ---
Anes - Initial Pre Proc Eval Procedure: Operation Date: 03/06/25 16:00 Proposed Procedures p Cystoscopy, Right Retrograde Pyelogram, Right Ureteral Stent Placement, Possible Right Ureteroscopy, Stone Extraction - Luis Cleveland MD Date/Time: 03/06/25 16:23 Surgeon: Luis Cleveland MD Pre Op Diagnosis: infected stone Patient Data Age: 19 Gender: F Height: 1.7 m Weight: 97.52 kg Last Vital Signs Temp 37.1 C 03/06/25 15:20 Pulse 69 03/06/25 15:20 Resp 18 03/06/25 15:20 BP 130/71 03/06/25 15:20 Pulse Ox 99 03/06/25 15:20 O2 Del Method Room Air 03/06/25 15:20 Allergies Allergy/AdvReac Type Severity Reaction Status Date / Time No Known Allergies Allergy Verified 03/06/25 15:19 Home Medications ?Medication ?Instructions ?Recorded ?Confirmed ?Type No Home Medications 03/06/25 03/06/25 H istory Laboratory Tests 03/06/25 03/06/25 03/06/25 07:46 07:50 09:04 WBC 8.7 K/mm3 (4.5-10.0) RBC 4.72 M/mm3 (4.2-5.4) Hgb 13.5 g/dL (12.0-15.0) Hct 39.8 % (37.0-47.0) MCV 84.3 fl (80-100) MCH 28.6 pg (26-34) MCHC 33.9 g/dl (32-36) RDW 11.8 % (11.5-14.5) Plt Count 288 k/mm3 (150-375) MPV 9.9 fl (7.4-10.4) Immature Gran % (Auto) 0.6 H % (0-0.5) Neut % (Auto) 75.1 H % (45.5-73.1) Lymph % (Auto) 17.8 L % (18.3-44.2) [place] % (Auto) 4.1 % (2.6-8.5) Eos % (Auto) 1.6 % (0-4.4) Baso % (Auto) 0.8 % (0.2-1.2) Lymph # (Auto) 1.55 K/mm3 (0.9-3.2) [place] # (Auto) 0.4 K/mm3 (0.1-0.6) Eos # (Auto) 0.1 K/mm3 (0-0.3) Baso # (Auto) 0.1 K/mm3 (0.0-0.1) Abs Immat Gran (auto) 0.05 H K/mm3 (0.00-0.031) Absolute Neuts (auto) 6.5 K/mm3 (1.3-6.7) Absolute Nucleated RBC 0.000 K/mm3 (0.0-0.012) Nucleated RBC % 0.0 % (0.0-0.2) Sodium 139 mmol/L (134-143) Potassium 4.7 mmol/L (3.4-5.0) Chloride 110 H mmol/L (98-107) Carbon Dioxide 16 L mmol/L (22-30) Anion Gap 13 H mmol/L (4-12) BUN 10 mg/dL (8-21) Creatinine 1.04 H mg/dL (0.7-1.0) Estim Creat Clear Calc 92 ml/min Estimated GFR > 60 (59 - ) Glucose 119 H mg/dL (65-110) Calcium 9.9 mg/dL (8.9-10.7) Total Bilirubin 0.4 mg/dL (0.2-1.3) AST 30 U/L (14-36) ALT 35 U/L (6-35) Alkaline Phosphatase 73 U/L (45-116) Total Protein 7.4 g/dL (6.3-8.6) Albumin 4.7 g/dL (3.7-5.6) Lipase 73 U/L (23-300) Urine Color Urine Appearance Urine pH Ur Specific [place] Urine Protein Urine Glucose (UA) Urine Ketones Ur Blood (Man) Urine Nitrate Urine Bilirubin Urine Urobilinogen Add Ur Microanalysis Leukocyte Esterase Rfl Urine RBC Urine WBC Ur Squamous Epith Cells Urine Bacteria Urine Casts POC Urine HCG, Qual Negative (Negative) 03/06/25 09:20 WBC RBC Hgb Hct MCV MCH MCHC RDW Plt Count MPV Immature Gran % (Auto) Neut % (Auto) Lymph % (Auto) [place] % (Auto) Eos % (Auto) Baso % (Auto) Lymph # (Auto) [place] # (Auto) Eos # (Auto) Baso # (Auto) Abs Immat Gran (auto) Absolute Neuts (auto) Absolute Nucleated RBC Nucleated RBC % Sodium Potassium Chloride Carbon Dioxide Anion Gap BUN Creatinine Estim Creat Clear Calc Estimated GFR Glucose Calcium Total Bilirubin AST ALT Alkaline Phosphatase Total Protein Albumin Lipase Urine Color Yellow (Yellow) Urine Appearance Cloudy H (Clear) Urine pH 6.0 (5.0-9.0) Ur Specific [place] 1.027 (1.001-1.035) Urine Protein 1+ H mg/dL (Negative) Urine Glucose (UA) Negative mg/dL (Negative) Urine Ketones Trace H mg/dL (Negative) Ur Blood (Man) Non-hemolyzed trace H (Negative) Urine Nitrate Negative (Negative) Urine Bilirubin Negative (Negative) Urine Urobilinogen 1.0 mg/dL (<2.0) Add Ur Microanalysis Reviewed Leukocyte Esterase Rfl 2+ H ANTHONY/UL (Negative) Urine RBC 6-10 H /hpf (0-2) Urine WBC >100 H /hpf (0-3) Ur Squamous Epith Cells Few /hpf (Few) Urine Bacteria None seen /hpf Urine Casts 6-10 POC Urine HCG, Qual Patient hx anesthesia problems: none Family hx anesthesia problems: none Results Review: All pre-operative results and documents have been reviewed as part of the pre- operative evaluation. [facility] Social History Social History Smoking status: Never smoker Alcohol intake: never Substance use: never Lack of Transportation: No Lack of Food: Never True Current Housing: I Have Housing Concerned About Future Housing: No Difficulty Paying Gas/Electric Bills: No Difficulty Paying for Meds: No Currently Unemployed: No Education: High School Diploma/GED Difficulty w/ Childcare or Family Care: No Spiritual care concerns: No Anes - Eval Final PreProcedure Day of Procedure 03/06/25 16:23 Patient weight: obese Heart: regular rate and rhythm Lungs: clear to auscultation Airway: Mallampati scale class II Neurological: alert and oriented Last oral intake: >/= 8 hours ASA classification: II Emergent: no Anesthetic plan: proceed Anesthesia type and monitoring: general LMA and standard monitoring Results Review: All pre-operative results and documents have been reviewed as part of the pre- operative evaluation. Informed Consent: The patient's anesthetic plan and its attendant risks and benefits were discussed with the patient/family/POA. Questions were solicited and answers provided to the satisfaction of the patient/family/POA.
[2025-03-06] MEDS: LACTATED RINGERS 1,000 ML 30 ML IV CONT (16:30)
--- NOTE | 2025-03-06 16:55 | S_PTH ---
PATIENT: Ronald Nagel LOC: [id number] U#:[id number] AGE/SX: 19/F ROOM: 260 RE03/06/[address]: Deedee Mark APRN : 2005 BED: 01 DIS: 03/08/2025 SPEC #: [id number] RECD: 03/07/25 08:53 STATUS: DOROTHEA FORTE #: [id number] BRAEDEN: 03/06/25 16:[address]: Luis Cleveland DEPT: [facility] Surgical RECD BY: Danielle Riley ENTERED: 03/07/25 08:53 SP TYPE: Surgical OTHR DR: PHYSICIAN NOT ON STAFF Tissues: A - Stone Procedures: Gross Exam Level 1 Crystalline Analysis
--- NOTE | 2025-03-06 17:02 | W.PM.PROC2 ---
Procedure Note - Detailed Date of Procedure 03/06/25 Pre-op Diagnosis Right ureteral stone, suspected urinary tract infection Post-op Diagnosis Same Procedure Performed 1. Cystoscopy 2. Right retrograde pyelogram with intraoperative interpretation 3. Right ureteroscopy 4. Stone basket extraction 5. Right ureteral stent placement Surgeon Luis Cleveland MD Anesthesia General Findings 1. Cystourethroscopy revealed orthotopic ureteral orifices bilaterally with a ureteral stone at the right ureteral orifice. There were no suspicious lesions, tumors, active bleeding in the lower urinary tract. 2. Right retrograde pyelogram using a 50 50 mixture of contrast and saline showed [id number] hydronephrosis with a filling defect at the right ureterovesical junction without contrast extravasation 3. Given that the stone was at the right ureteral orifice I elected to remove the stone, particularly given its small size. I was able to grasp the stone with a basket and retrieve it in its entirety. 4. Successful right ureteral stent placement without strings attached Description of Procedure After informed consent was obtained, the patient was brought back to the operating theatre and placed in the supine position on the operating table. Pre-operative antibiotics were confirmed to have been administered. Anesthesia was induced. The patient was moved into the dorsal lithotomy position and prepped and draped in the standard sterile fashion for an endoscopic case. All pressure points were padded. Bilateral sequential compression devices were on and noted to be functioning. A formal timeout was performed with Dr. Cleveland in attendance to confirm the correct patient, site/laterality, and procedure and all were in agreement to proceed. To begin with, I atraumatically advanced a lubricated 22-Belarusian rigid cystoscope transurethrally into the patient's bladder. Pancystoscopy was performed with findings as noted above. Attention was then turned to the right ureteral orifice, where a small stone was seen at the orifice. Given the small size and the fact that it was , I elected to treat the stone. First, alongside the stone I advanced the Sensor wire and over top of this passed the open-ended catheter to the level of the right distal ureter. Through this I performed a right-sided retrograde pyelogram using a 50 50 mixture of contrast and saline with findings as noted above. I then replaced a Sensor wire through the opening catheter up the level the right kidney under fluoroscopy. I then removed the cystoscope and secured the Sensor wire to the drapes with a hemostat. Next, I inserted a semi rigid ureteroscope transurethrally in the patient's bladder with attention drawn to the right ureteral orifice, which was cannulated with a 2nd, safety Glidewire. I then advanced the ureteral scope between the 2 wires to perform the ?railroad? technique and performed right ureteroscopy. At the right distal most ureter the 2 mm stone was seen. I used a ZeroTip Nitinol basket to grasp the stone in its entirety and retrieve it; the stone was sent as a specimen for kidney stone analysis. I then took a spot film noted that there was still contrast in the right kidney and I dusted not perform another right-sided retrograde pyelogram. I then removed the ureteroscope and backloaded the cystoscope onto the Sensor wire was advanced transurethrally into the patient's bladder with attention drawn to the right ureteral orifice.Over top of the wire, a 6-Belarusian x 26 cm JJ stent was advanced and the pusher was used to deploy the stent in place, confirming an adequate good proximal curl in the right kidney under fluoroscopy and a good distal curl in the bladder under both fluoroscopic and direct cystoscopic vision. The patient's bladder was then emptied and the cystoscope was removed, essentially concluding the case. At the conclusion of the case all sponge, instrument, and sharp counts were correct x 2. The patient was then awoken from anesthesia and taken to the recovery room in stable condition. The patient tolerated the procedure well and there were no immediate complications noted. Disposition: The patient will be monitored in the PACU and be transferred back to her hospital room after clearing PACU protocol. From there, will follow up on her culture results to determine most appropriate antibiotic regimen. Patient's mother was provided with a note that following the surgery all questions were answered to her satisfaction at the conclusion of our discussion.
[2025-03-06] MEDS: KETOROLAC 30 MG/ML VIAL (*BKC) IV PUSH (17:09)
[2025-03-06] MEDS: TAMSULOSIN HCL 0.4 MG CAPSULE PO (21:14)
[2025-03-07] VITALS: BP 121/71; PULSE 91; RESP 20; TEMP 36.8; O2SAT 100
[2025-03-07] MEDS: SODIUM CHLORIDE 0.9% IV 1,000 ML 100 ML IV CONT ×3 (00:01→21:23)
[2025-03-07 04:00] VITALS: BP 118/68; PULSE 88; RESP 20; TEMP 36.6; O2SAT 99
[2025-03-07] MEDS: ACETAMINOPHEN 325 MG TABLET 650 MG PO (05:13)
[2025-03-07 05:26] LABS: Hematocrit 37.5 % (37.0-47.0); Hemoglobin 12.3 g/dL (12.0-15.0); Immature Granulocyte Percent A 0.6 % (0-0.5); Lymphocytes Absolute Auto 1.06 K/mm3 (0.9-3.2); Mean Corpuscular HGB Conc 32.8 g/dl (32-36); Mean Corpuscular Hemoglobin 28.9 pg (26-34); Mean Corpuscular Volume 88.2 fl (80-100); Nucleated Red Blood Cells Absolute Auto 0.000 K/mm3 (0.0-0.012); Nucleated Red Blood Cells Perc 0.0 % (0.0-0.2); Platelet Count Result 296 k/mm3 (150-375); Red Blood Count 4.25 M/mm3 (4.2-5.4); White Blood Count 9.6 K/mm3 (4.5-10.0)
[2025-03-07 07:19] LABS: Anion Gap 10 mmol/L (4-12); Blood Urea Nitrogen 8 mg/dL (8-21); Calcium 8.9 mg/dL (8.9-10.7); Carbon Dioxide 18 mmol/L (22-30); Chloride 109 mmol/L (98-107); Estimated CRCL calculation 124 ml/min; Estimated Glomerular Filt Rate > 60; Glucose 116 mg/dL (65-110); Potassium 4.5 mmol/L (3.4-5.0); Sodium 137 mmol/L (134-143)
[2025-03-07 08:00] VITALS: BP 110/64; PULSE 80; RESP 14; TEMP 36.6; O2SAT 99
[2025-03-07] MEDS: cefTRIAXone 1 GM in SODIUM CHLORIDE 0.9% IV 50 ML 100 ML IVPB (08:59)
[2025-03-07 12:00] VITALS: BP 137/67; PULSE 87; RESP 14; TEMP 36.7; O2SAT 100
--- NOTE | 2025-03-07 16:26 | WPDUROPN2 ---
Progress Note: A&P Assessment and Plan (1) Right ureteral stone: Code(s): N20.1 - Calculus of ureter Status: Acute (2) Suspected UTI: Code(s): R39.89 - Other symptoms and signs involving the genitourinary system Status: Acute Plan 19yF with a 2mm right UVJ stone and suspected UTI - POD 1 1. Cystoscopy 2. Right retrograde pyelogram with intraoperative interpretation 3. Right ureteroscopy 4. Stone basket extraction 5. Right ureteral stent placement - She is afebrile and hemodynamically stable. - She has no leukocytosis and her renal function remains within normal limits. - Urine culture is pending. - Will continue broad-spectrum antibiotics (patient received IV ceftriaxone in the ER) and tailor to culture sensitivities as appropriate - Will plan to discharge once a preliminary results on urine culture. - Ureteral stent expectations discussed including urine appearance and discomfort. - She will follow up in 2-3 weeks for in office cysto/stent removal. Subjective Subjective Date/Time Seen: 03/07/25 16:26 Interval history: Patient is feeling better today and is ready to go home. Her mother is at bedside. labs are stable. Review of Systems Review of Systems: Negative except as noted in HPI. Exam Narrative: General: Alert, no acute distress Head: Normocephalic, atraumatic Eyes: Extraocular movements intact Neck: No JVD, trachea midline Respiratory: Symmetric chest rise, nonlabored breathing on room air CV: Normal rate, adequate peripheral perfusion Abdomen: Soft, nontender, nondistended : Right CVAT Skin: Warm/dry Extremities: No peripheral edema, no cyanosis Neuro: No focal deficits Psych: Answers questions appropriately, appropriate mood Objective Data Vital Signs Vital Signs: Vital Signs - 24 hr 03/06/25 17:04 03/06/25 17:15 03/06/25 17:30 Temperature 97.7 F Pulse Rate 65 69 65 Respiratory Rate 18 20 18 Blood Pressure 108/57 L 111/64 113/63 Pulse Oximetry 100 100 100 Oxygen Delivery Simple Face Mask Simple Face Mask Simple Face Mask Oxygen Flow Rate 6 6 6 03/06/25 17:45 03/06/25 17:50 03/06/25 18:00 Temperature Pulse Rate 80 80 Respiratory Rate 20 18 Blood Pressure 120/81 117/81 Pulse Oximetry 100 100 Oxygen Delivery Simple Face Mask Room Air Room Air Oxygen Flow Rate 6 03/06/25 18:10 03/06/25 18:40 03/06/25 20:00 Temperature 97.6 F 97.5 F L Pulse Rate 73 73 83 Respiratory Rate 20 16 20 Blood Pressure 126/74 128/76 126/69 Pulse Oximetry 100 99 98 Oxygen Delivery Room Air Oxygen Flow Rate 03/06/25 20:56 03/06/25 21:10 03/07/25 00:00 Temperature 98.3 F Pulse Rate 91 Respiratory Rate 20 Blood Pressure 121/71 Pulse Oximetry 98 100 Oxygen Delivery Room Air Room Air Oxygen Flow Rate 03/07/25 04:00 03/07/25 08:00 03/07/25 09:09 Temperature 97.8 F 97.9 F Pulse Rate 88 80 Respiratory Rate 20 14 Blood Pressure 118/68 110/64 Pulse Oximetry 99 99 Oxygen Delivery Room Air Oxygen Flow Rate 03/07/25 12:00 Temperature 98.0 F Pulse Rate 87 Respiratory Rate 14 Blood Pressure 137/67 Pulse Oximetry 100 Oxygen Delivery Oxygen Flow Rate Intake/Output Intake/Output: Intake & Output 03/04/25 03/05/25 03/06/25 03/07/25 22:59 23:59 23:59 23:59 Intake Total 2250 1430 Output Total 1000 450 Balance 1250 980 Meds/Results Medications: Active Medications Generic Name Dose Route Start Last Admin Trade Name Freq PRN Reason Stop Dose Admin Acetaminophen 650 mg 03/06/25 10:36 03/07/25 05:13 Acetaminophen 325 Mg Tablet PO 650 mg Q4H PRN Administration Mild Pain (1-3) or Fever Hydrocodone Bitart/Acetaminophen 1 tab 03/06/25 10:36 Hydrocodone/Acetaminophen (*Crx) 5-325 Mg Tablet PO Q4H PRN Moderate Pain (4-6) Fentanyl Citrate 25 mcg 03/06/25 16:28 Fentanyl Citrate Inj (*Crx) 100 Mcg/2 Ml Vial IV PUSH Q2M PRN Pain Hyoscyamine 0.125 mg 03/06/25 14:14 Hyoscyamine Sulfate 0.125 Mg Tablet PO Q4H PRN Bladder Spasm Sodium Chloride 1,000 mls @ 100 mls/hr 03/06/25 10:40 03/07/25 10:38 Normal Saline Iv IV CONT 100 mls/hr .Q10H JODEE Administration Ceftriaxone Sodium 1 gm/ 50 mls @ 100 mls/hr 03/07/25 09:00 03/07/25 08:59 Sodium Chloride IVPB 100 mls/hr Q24H JODEE Administration Lactated Ringer's 1,000 mls @ 30 mls/hr 03/06/25 16:30 03/06/25 18:10 Lr - Lactated Ringers Iv IV CONT Infused .Q24H JODEE Infusion Lactated Ringer's 1,000 mls @ 30 mls/hr 03/06/25 16:30 03/07/25 08:58 Lr - Lactated Ringers Iv IV CONT Not Given .Q24H JODEE Ketorolac Tromethamine 15 mg 03/06/25 10:18 Ketorolac 30 Mg/Ml Vial (*Bkc) IV PUSH 03/11/25 10:17 Q3H PRN Pain Rated 4-6 Morphine Sulfate 2 mg 03/06/25 10:18 Morphine Sulfate (*Crx) 4 Mg/Ml Inj IV PUSH Q2H PRN Pain Rated 7-10 Ondansetron HCl 4 mg 03/06/25 10:36 Ondansetron Inj 4 Mg/2 Ml Vial IV PUSH Q6H PRN Nausea And Vomiting Ondansetron HCl 4 mg 03/06/25 16:28 Ondansetron Inj 4 Mg/2 Ml Vial IV PUSH ONCE PRN Nausea Oxycodone HCl 5 mg 03/06/25 16:28 Oxycodone Hcl (*Crx) 5 Mg Tab Ir PO ONCE PRN Pain Phenazopyridine HCl 100 mg 03/06/25 17:00 Phenazopyridine Hcl 100 Mg Tablet PO TIDWM PRN Urinary discomfort Tamsulosin HCl 0.4 mg 03/06/25 21:00 03/06/25 21:14 Tamsulosin Hcl 0.4 Mg Capsule PO 0.4 mg QHS JODEE Administration Radiology Results: ITS Impressions Abdomen/Pelvis CT 03/06/25 09:46 IMPRESSION: Right-sided obstructive uropathy Retrograde Pyelogram 03/06/25 17:09 IMPRESSION: 1. Right internal ureteral stent placement. Please refer to real-time procedural findings for details. Labs Labs: Laboratory Results - last 24 hr 03/07/25 04:58 WBC 9.6 RBC 4.25 Hgb 12.3 Hct 37.5 MCV 88.2 MCH 28.9 MCHC 32.8 RDW 11.9 Plt Count 296 MPV 10.1 Immature Gran % (Auto) 0.6 H Neut % (Auto) 84.3 H Lymph % (Auto) 11.0 L [place] % (Auto) 3.9 Eos % (Auto) 0.0 Baso % (Auto) 0.2 Lymph # (Auto) 1.06 [place] # (Auto) 0.4 Eos # (Auto) 0.0 Baso # (Auto) 0.0 Abs Immat Gran (auto) 0.06 H Absolute Neuts (auto) 8.1 H Absolute Nucleated RBC 0.000 Nucleated RBC % 0.0 Sodium 137 Potassium 4.5 Chloride 109 H Carbon Dioxide 18 L Anion Gap 10 BUN 8 Creatinine 0.76 Estim Creat Clear Calc 124 Estimated GFR > 60 Glucose 116 H Calcium 8.9
[2025-03-07 21:05] VITALS: BP 127/73; PULSE 88; RESP 16; TEMP 37.1; O2SAT 100
[2025-03-07] MEDS: TAMSULOSIN HCL 0.4 MG CAPSULE PO (21:21)
[2025-03-08 05:28] LABS: Hematocrit 36.9 % (37.0-47.0); Hemoglobin 12.1 g/dL (12.0-15.0); Immature Granulocyte Percent A 0.6 % (0-0.5); Lymphocytes Absolute Auto 2.79 K/mm3 (0.9-3.2); Mean Corpuscular HGB Conc 32.8 g/dl (32-36); Mean Corpuscular Hemoglobin 28.7 pg (26-34); Mean Corpuscular Volume 87.6 fl (80-100); Nucleated Red Blood Cells Absolute Auto 0.000 K/mm3 (0.0-0.012); Nucleated Red Blood Cells Perc 0.0 % (0.0-0.2); Platelet Count Result 264 k/mm3 (150-375); Red Blood Count 4.21 M/mm3 (4.2-5.4); White Blood Count 8.4 K/mm3 (4.5-10.0)
[2025-03-08 05:39] VITALS: BP 140/80; PULSE 78; RESP 16; TEMP 36.7; O2SAT 100
[2025-03-08] MEDS: SODIUM CHLORIDE 0.9% IV 1,000 ML 100 ML IV CONT (05:42)
[2025-03-08] MEDS: cefTRIAXone 1 GM in SODIUM CHLORIDE 0.9% IV 50 ML 100 ML IVPB (08:32)
[2025-03-08 08:35] VITALS: RESP 16; O2SAT 100
--- NOTE | 2025-03-08 08:51 | PM.DS ---
DS: Admitting Diagnosis Discharge Date 03/08/2025 Admitting Diagnosis 2mm right UVJ stone and suspected UTI DS: Discharge Diagnosis Discharge Diagnosis Plan 2mm right UVJ stone DS: Summary Hospital Course Hospital Course: - POD 2 1. Cystoscopy 2. Right retrograde pyelogram with intraoperative interpretation 3. Right ureteroscopy 4. Stone basket extraction 5. Right ureteral stent placement - She is afebrile and hemodynamically stable. - She has no leukocytosis and her renal function remains within normal limits. - Urine culture shows no growth - Will discharge today - Ureteral stent expectations discussed including urine appearance and discomfort. - She will follow up in 2-3 weeks for in office cysto/stent removal. Status at Discharge Functional status at discharge: independent ambulation Overall status at discharge: patient is back to baseline Time Spent with Patient Time attestation: Total time spent providing and/or coordinating discharge services: Exam Const: General: comfortable and no acute distress Resp: Effort & Inspection: normal respiratory effort Cardio: Rate: regular rate Rhythm: regular rhythm GI: GI Palp: Yes Soft to palpation Skin: General skin exam: normal color Neuro: General: gait normal Psych: Mental Status: mental status grossly normal DS: Data Data Completed and Pending Completed studies during hospitalization: Pending at discharge 03/06/25 16:55 Surgical [PTH] Routine Labs on day of discharge: Labs from last 24 hours 03/08/25 05:14 WBC 8.4 RBC 4.21 Hgb 12.1 Hct 36.9 L MCV 87.6 MCH 28.7 MCHC 32.8 RDW 12.1 Plt Count 264 MPV 9.6 Immature Gran % (Auto) 0.6 H Neut % (Auto) 59.7 Lymph % (Auto) 33.1 [place] % (Auto) 4.2 Eos % (Auto) 1.8 Baso % (Auto) 0.6 Lymph # (Auto) 2.79 [place] # (Auto) 0.4 Eos # (Auto) 0.2 Baso # (Auto) 0.1 Abs Immat Gran (auto) 0.05 H Absolute Neuts (auto) 5.0 Absolute Nucleated RBC 0.000 Nucleated RBC % 0.0 Discharge Plan Discharge Attending physician on discharge: Luis Cleveland Discharging Clinician: Deedee Mark Patient Disposition: Home Activity: august shower Diet: regular Discharge Instructions: Follow up in office in next 2-3 weeks for stent removal. Patient Language: Chinese Stand Alone Forms: General Discharge Information Follow-up/Referrals: Luis Cleveland MD [Physician, Urology] Referral Note: stent removal Problems: Right ureteral stone Discharge Medications: No Action No Home Medications Date of admission: 03/06/25 10:18 Primary Care Provider: Gloria,Claudia STEPHEN Admitting Provider: Luis Cleveland Attending physician on admission: uLis Cleveland Condition: Stable
== END 2025-03-08 11:15 | disposition home or self-care (01) ==
LOC: ANHED 10:25 → ANH2MED 10:36
PROVIDERS: Student in an Organized Health Care Education/Training Program; Admitting Provider Urology; Emergency Provider Emergency Medicine; Visit Provider Nurse Practitioner Family
PROC: (CPT 52352; principal; 2025-03-06 16:00)
DX: N20.1 Calculus of ureter (principal)
CPT/HCPCS: 52332; 52352; 36415; 74177; 74420; 80048; 80053; 81001; 81025; 82365; 83690; 85025; 87086; 88300; 96361; 96365; 96375; 96376; 99285; A9270; C1758; C1769; C2617; G0378; J0696; J1100; J1200; J1885; J2003; J2250; J2270; J2405; J2704; J2765; J7030; J7120; Q9966; Q9967